=== PATIENT | female | born 1935 | race Caucasian/White ===

== ENCOUNTER 2023-09-18 17:37 | Inpatient (IN) | payer MEDICARE, OTHER ==
--- NOTE | 2023-09-18 18:19 | ED ---
Recheck HPI - General Chief Complaint: Recheck/Abnormal Lab/Rx Stated Complaint: blood transfusion Time Seen by Provider: 09/18/23 18:15 Source: patient, family, RN notes reviewed, old records reviewed Mode of arrival: ambulatory Limitations: no limitations - History of Present Illness Initial Comments: 88-year-old female presented to the ER with a chief complaint of low hemoglobin. Patient had preop labs drawn by Dr. Paniagua earlier today as she is scheduled for a TAVR procedure next week. She is a history significant of aortic stenosis. She reports she got a phone call later in the day and was told to come to ER as her hemoglobin was 5.9. Patient admits to weakness and fatigue for the past 2 to 3 weeks. She states her family would have to tell her to "hurry up". She also reports recent shortness of breath especially with exertion. Denies any orthopnea or home O2 use. She states when she goes to bed she feels asleep right away as she is so tired. Family report she appears pale. Denies any blood thinner use. She does report her stools have been a dark brown with streaking of bright red blood. Patient denies any history of GI b stone, gastric ulcers, blood transfusions. She has had colonoscopies and EGDs in the past which were normal per patient. Patient denies any current cough, congestion, fevers, chest pain, abdominal pain, urinary complaints or peripheral edema. - Related Data Home Medications Medication Instructions Recorded Confirmed Cyanocobalamin [Vitamin B-12 1,000 mcg SQ QMONTHLY 09/18/23 09/18/23 Injection] Levothyroxine Sodium [Synthroid] 112 mcg PO DAILY 09/18/23 09/18/23 Meclizine [Antivert] 25 mg PO TID 09/18/23 09/18/23 Sertraline [Zoloft] 25 mg PO DAILY 09/18/23 09/18/23 Simvastatin [Zocor] 5 mg PO DAILY 09/18/23 09/18/23 amLODIPine [Norvasc] 5 mg PO DAILY 09/18/23 09/18/23 Allergies Allergy/AdvReac Type Severity Reaction Status Date / Time No Known Allergies Allergy Verified 09/18/23 19:28 Review of Systems ROS Statement: Those systems with pertinent positive or pertinent negative responses have been documented in the HPI. ROS Other: All systems not noted in ROS Statement are negative. Past Medical History Past Medical History: Hyperlipidemia, Thyroid Disorder Additional Past Medical History / Comment(s): aneurysm History of Any Multi-Drug Resistant Organisms: None Reported Additional Past Surgical History / Comment(s): partial thyroidectomy Past Psychological History: No Psychological Hx Reported Smoking Status: Former smoker Past Alcohol Use History: None Reported Past Drug Use History: None Reported General Exam Limitations: no limitations General appearance: alert, in no apparent distress Head exam: Present: atraumatic, normocephalic, normal inspection Eye exam: Present: normal appearance, PERRL, EOMI. Absent: scleral icterus, conjunctival injection, periorbital swelling ENT exam: Present: normal exam, mucous membranes moist Neck exam: Present: normal inspection. Absent: tenderness, meningismus, lymphadenopathy Respiratory exam: Present: normal lung sounds bilaterally. Absent: respiratory distress, wheezes, rales, rhonchi, stridor Cardiovascular Exam: Present: regular rate, normal rhythm, systolic murmur (Aortic ) GI/Abdominal exam: Present: soft, normal bowel sounds. Absent: distended, tenderness, guarding, rebound, rigid Extremities exam: Present: normal inspection, full ROM, normal capillary refill. Absent: tenderness, pedal edema, joint swelling, calf tenderness Neurological exam: Present: alert, oriented X3, CN II-XII intact Psychiatric exam: Present: normal affect, normal mood Skin exam: Present: warm, dry, pallor Course Vital Signs 09/18/23 09/18/23 17:43 21:19 Temperature 97.8 F Pulse Rate 83 74 Respiratory 18 18 Rate Blood Pressure 108/58 125/89 O2 Sat by Pulse 95 94 L Oximetry - Reevaluation(s) Reevaluation #1: 09/18/23 20:[address] Solorio who accepts medical admission. He would like Dr. Ramirez on consult for colonoscopy. Reevaluation #2: 09/18/23 20:[address] Ramirez who accepts medical consult. Medical Decision Making - Medical Decision Making Was pt. sent in by a medical professional or institution (, PA, SHEET IRONWORKER, urgent care, hospital, or long term...) When possible be specific @ -Sent by Dr. Paniagua for hemoglobin of 5.9 on preop labs. Did you speak to anyone other than the patient for history (EMS, parent, family, police, friend...)? What history was obtained from this source @ -Daughter, at bedside, aiding HPI. Did you review nursing and triage notes (agree or disagree)? Why? @ -I reviewed and agree with nursing and triage notes Were old charts reviewed (outside hosp., previous admission, EMS record, old EKG, old radiological studies, urgent care reports/EKG's, long term records)? Report findings @ -I reviewed lab work from 09-18-2023 where patient had outpatient preoperative labs obtained. Hemoglobin 5.9. Differential Diagnosis (chest pain, altered mental status, abdominal pain women, abdominal pain men, vaginal bleeding, weakness, fever, dyspnea, syncope, hea dache, dizziness, GI bleed, back pain, seizure, CVA, palpatations, mental health, musculoskeletal)? @ -Differential Dyspnea:Coronary syndrome, arrhythmia, tamponade, asthma, COPD, pulmonary embolism, pneumonia, pneumothorax, pulmonary effusion, anaphylaxis, diabetic ketoacidosis, flailed chest, pulmonary contusion, diaphragmatic rupture, anemia, neuromuscular, this is not meant to be an all-inclusive list. EKG interpreted by me (3pts min.). @ -As above X-rays interpreted by me (1pt min.). @ -Chest x-ray interpreted by me negative for acute cardiopulmonary process. CT interpreted by me (1pt min.). @ -None done U/S interpreted by me (1pt. min.). @ -None done What testing was considered but not performed or refused? (CT, X-rays, U/S, labs)? Why? @ -None What meds were considered but not given or refused? Why? @ -None Did you discuss the management of the patient with other professionals (professionals i.e. DrRahul, PA, SHEET IRONWORKER, lab, RT, psych nurse, social work instructor, founder president and ceo, teacher, neighborhood conservation officer, block and case maker)? Give summary @ -Yes, case discussed with Dr. Solorio who accepts medical admission. I also spoke with Dr. Ramirez who accepts medical consult. Was smoking cessation discussed for >3mins.? @ -No Was critical care preformed (if so, how long)? @ -No Were there social determinants of health that impacted care today? How? (Homelessness, low income, unemployed, alcoholism, drug addiction, transportation, low edu. Level, literacy, decrease access to med. care, retirement, rehab)? @ -No Was there de-escalation of care discussed even if they declined (Discuss DNR or withdrawal of care, Hospice)? DNR status @ -No What co-morbidities impacted this encounter? (DM, HTN, Smoking, COPD, CAD, Cancer, CVA, ARF, Chemo, Hep., AIDS, mental health diagnosis, sleep apnea, morbid obesity)? @ -Aortic stenosis/advanced age Was patient admitted / discharged? Hospital course, mention meds given and route, prescriptions, significant lab abnormalities, going to OR and other pertinent info. @ - Admitted. 88-year-old female presenting to the ER with chief complaint of low hemoglobin. Patient sent by Dr. Paniagua. History and physical exam completed. Vitals stable. Blood pressure 108/58 and heart rate 83 bpm. Patient in no signs of acute distress and pale appearing on exam. Labs obtained remarkable for a normocytic hypochromic anemia hemoglobin 6.1, and calcium 7.2. Stool occult positive. Urinalysis pending. Chest x-ray interpreted by me negative for acute cardiopulmonary process. EKG showing sinus rhythm with no acute ST segment or T wave abnormalities. Admission considered due to anemia and need of blood transfusion. Case discussed with Dr. Solorio who accepts medical admission. Dr. Ramirez agreed to be on medical consult. 1 unit of PRBCs started. Patient started on IV Protonix. Results discussed with patient, all questions answered. Patient and family, at bedside, agreeable for admission. Patient admitted for further treatment. Case discussed with ED attending, Dr. Villegas. Undiagnosed new problem with uncertain prognosis? @ -No Drug Therapy requiring intensive monitoring for toxicity (Heparin, Nitro, Insulin, Cardizem)? @ -No Were any procedures done? @ -No Diagnosis/symptom? @ -Microcytic hypochromic anemia/stool occult positive Acute, or Chronic, or Acute on Chronic? @ -Acute Uncomplicated (without systemic symptoms) or Complicated (systemic symptoms)? @ -Complicated Side effects of treatment? @ -No Exacerbation, Progression, or Severe Exacerbation? @ -No Poses a threat to life or bodily function? How? (Chest pain, USA, SC, pneumonia, PE, COPD, DKA, ARF, appy, cholecystitis, CVA, Diverticulitis, Homicidal, Muse icidal, threat to staff... and all critical care pts) @ -Possibly low hgb can lead to hypoxia which is life threatening. - Lab Data Result diagrams: 09/18/23 18:51 09/18/23 18:51 Lab Results 09/18/23 09/18/23 09/18/23 Range/Units 18:49 18:51 18:51 WBC 5.2 (3.8-10.6) k/uL RBC 2.52 L (3.80-5.40) m/uL Hgb 6.1 L* (11.4-16.0) gm/dL Hct 19.9 L* (34.0-46.0) % MCV 78.9 L (80.0-100.0) fL MCH 24.2 L (25.0-35.0) pg MCHC 30.6 L (31.0-37.0) g/dL RDW 16.2 H (11.5-15.5) % Plt Count 255 (150-450) k/uL MPV 7.1 Neutrophils % 65 % Lymphocytes % 25 % Monocytes % 5 % Eosinophils % 2 % Basophils % 0 % Neutrophils # 3.4 (1.3-7.7) k/uL Lymphocytes # 1.3 (1.0-4.8) k/uL Monocytes # 0.3 (0-1.0) k/uL Eosinophils # 0.1 (0-0.7) k/uL Basophils # 0.0 (0-0.2) k/uL Hypochromasia Marked Anisocytosis Slight Microcytosis Slight PT 10.2 (10.0-12.5) sec INR 0.9 (<1.2) APTT 25.0 (22.0-30.0) sec Sodium (137-145) mmol/L Potassium (3.5-5.1) mmol/L Chloride (98-107) mmol/L Carbon Dioxide (22-30) mmol/L Anion Gap mmol/L BUN (7-17) mg/dL Creatinine (0.52-1.04) mg/dL Est GFR (CKD-EPI)AfAm (>60 ml/min/1.73 sqM) Est GFR (CKD-EPI)NonAf (>60 ml/min/1.73 sqM) Glucose (74-99) mg/dL Plasma Lactic Acid Lamont (0.7-2.0) mmol/L Calcium (8.4-10.2) mg/dL Magnesium (1.6-2.3) mg/dL Total Bilirubin (0.2-1.3) mg/dL AST (14-36) U/L ALT (4-34) U/L Alkaline Phosphatase (38-126) U/L Total Protein (6.3-8.2) g/dL Albumin (3.5-5.0) g/dL Stool Occult Blood Positive H (Negative) 09/18/23 09/18/23 Range/Units 18:51 18:51 WBC (3.8-10.6) k/uL RBC (3.80-5.40) m/uL Hgb (11.4-16.0) gm/dL Hct (34.0-46.0) % MCV (80.0-100.0) fL MCH (25.0-35.0) pg MCHC (31.0-37.0) g/dL RDW (11.5-15.5) % Plt Count (150-450) k/uL MPV Neutrophils % % Lymphocytes % % Monocytes % % Eosinophils % % Basophils % % Neutrophils # (1.3-7.7) k/uL Lymphocytes # (1.0-4.8) k/uL Monocytes # (0-1.0) k/uL Eosinophils # (0-0.7) k/uL Basophils # (0-0.2) k/uL Hypochromasia Anisocytosis Microcytosis PT (10.0-12.5) sec INR (<1.2) APTT (22.0-30.0) sec Sodium 143 (137-145) mmol/L Potassium 3.7 (3.5-5.1) mmol/L Chloride 109 H (98-107) mmol/L Carbon Dioxide 27 (22-30) mmol/L Anion Gap 7 mmol/L BUN 28 H (7-17) mg/dL Creatinine 0.99 (0.52-1.04) mg/dL Est GFR (CKD-EPI)AfAm 59 (>60 ml/min/1.73 sqM) Est GFR (CKD-EPI)NonAf 51 (>60 ml/min/1.73 sqM) Glucose 96 (74-99) mg/dL Plasma Lactic Acid Lamont 0.8 (0.7-2.0) mmol/L Calcium 7.2 L (8.4-10.2) mg/dL Magnesium 2.2 (1.6-2.3) mg/dL Total Bilirubin 0.3 (0.2-1.3) mg/dL AST 19 (14-36) U/L ALT 9 (4-34) U/L Alkaline Phosphatase 55 (38-126) U/L Total Protein 6.6 (6.3-8.2) g/dL Albumin 3.7 (3.5-5.0) g/dL Stool Occult Blood (Negative) - EKG Data -: EKG Interpreted by Me EKG Comments: EKG taken at 18: 00 showing a sinus rhythm with no acute ST segment or T wave abnormalities. Ventricular rate 79, WI interval 173, QRS duration 81, QT/QTc 396/430. - Radiology Data Radiology results: report reviewed, image reviewed Disposition Clinical Impression: Anemia, Positive occult stool blood test Disposition: ADMITTED IP TO THIS [facility] Condition: Fair Time of Disposition: 20:38
[2023-09-18 19:56] LABS: Anisocytosis Slight; Basophils % (A) 0 %; Eosinophils # (A) 0.1 k/uL (0-0.7); Eosinophils % (A) 2 %; Hypochromasia Marked; Lymphocytes # (A) 1.3 k/uL (1.0-4.8); Lymphocytes % (A) 25 %; MCH 24.2 pg (25.0-35.0); MCHC 30.6 g/dL (31.0-37.0); MCV 78.9 fL (80.0-100.0); Mean Platelet Volume 7.1; Microcytosis Slight; Monocytes # (A) 0.3 k/uL (0-1.0); Monocytes % (A) 5 %; Neutrophils # (A) 3.4 k/uL (1.3-7.7); Neutrophils % (A) 65 %; Platelet Count 255 k/uL (150-450); RBC 2.52 m/uL (3.80-5.40); RDW 16.2 % (11.5-15.5); WBC 5.2 k/uL (3.8-10.6)
[2023-09-18 20:10] LABS: INR 0.9 (<1.2); Prothrombin Time 10.2 sec (10.0-12.5)
[2023-09-18 20:12] LABS: HGB 6.1 gm/dL (11.4-16.0)
[2023-09-18 20:13] LABS: HCT 19.9 % (34.0-46.0)
[2023-09-18 20:36] LABS: ALT 9 U/L (4-34); AST 19 U/L (14-36); African American GFR (CKD) 59 (>60 ml/min/1.73 sqM); Albumin 3.7 g/dL (3.5-5.0); Alkaline Phosphatase 55 U/L (38-126); Anion Gap 7 mmol/L; Blood Urea Nitrogen 28 mg/dL (7-17); Calcium 7.2 mg/dL (8.4-10.2); Carbon Dioxide 27 mmol/L (22-30); Chloride 109 mmol/L (98-107); Glucose 96 mg/dL (74-99); Magnesium 2.2 mg/dL (1.6-2.3); Non-African American GFR(CKD) 51 (>60 ml/min/1.73 sqM); Potassium 3.7 mmol/L (3.5-5.1); Sodium 143 mmol/L (137-145); Total Bilirubin 0.3 mg/dL (0.2-1.3); Total Protein 6.6 g/dL (6.3-8.2)
[2023-09-18] MEDS ORDERED: NALOXONE 0.4 MG/ML 1 ML VIAL IV PRN (20:36)
[2023-09-18] MEDS ORDERED: ONDANSETRON 4 MG/2 ML VIAL IVP PRN (20:36)
--- NOTE | 2023-09-18 20:47 | XR ---
EXAMINATION TYPE: XR chest 2V DATE OF EXAM: 09/18/2023 6:33 PM CLINICAL INDICATION:Female, 88 years old with history of difficulty breathing; [facility] COMPARISON: 11/15/2021 TECHNIQUE: XR chest 2V. Frontal and lateral views of the chest.. FINDINGS: Lines/Tubes/Devices: EKG leads overlie the chest. No indwelling lines are seen. Heart/mediastinum: Heart size upper normal. Mediastinum appears normal. Pulmonary vascularity: Not increased, Lungs/Pleura: Stable mildly prominent interstitial lung markings, likely chronic changes. There is no evidence of pleural effusion, focal consolidation, or pneumothorax. Musculoskeletal: No acute osseous abnormality demonstrated in the limits of the exam. Mild/moderate degenerative change of the spine and shoulders. Other findings: None. IMPRESSION: No acute cardiopulmonary abnormality.
[2023-09-18] MEDS: SODIUM CHLORIDE 0.9% 1,000 ML IV STA (21:18)
[2023-09-18] MEDS: PANTOPRAZOLE 40 MG/10 ML VIAL IVP STA (21:18)
[2023-09-19 06:38] LABS: Appearance,Urine Clear (Clear); Bacteria,Urine Rare /hpf; Bilirubin,Urine Negative (Negative); Blood,Urine Negative (Negative); Color,Urine Colorless; Glucose,Urine (UA) Negative (Negative); Hyaline Casts,Urine 1 /lpf (0-2); Ketones,Urine Negative (Negative); Leukocyte Esterase,Urine Small (Negative); Mucus,Urine Rare /hpf; Nitrite,Urine Positive (Negative); PH, Urine 5.5 (5.0-8.0); Protein,Urine Negative (Negative); RBC,Urine <1 /hpf (0-5); Specific Gravity,Urine 1.014 (1.001-1.035); Urobilinogen,Urine <2.0 mg/dL (<2.0); WBC,Urine 13 /hpf (0-5)
[2023-09-19] MEDS: PANTOPRAZOLE 40 MG/10 ML VIAL IVP SCH (08:32)
[2023-09-19 08:42] LABS: HCT 23.6 % (34.0-46.0); HGB 7.2 gm/dL (11.4-16.0); Hypochromasia Marked; MCH 24.8 pg (25.0-35.0); MCHC 30.5 g/dL (31.0-37.0); MCV 81.5 fL (80.0-100.0); Mean Platelet Volume 7.4; Platelet Count 226 k/uL (150-450); Poikilocytosis Slight; RDW 15.8 % (11.5-15.5); WBC 5.4 k/uL (3.8-10.6)
--- NOTE | 2023-09-19 11:23 | P.GSCN ---
History of Present Illness Consult date: 09/19/23 History of present illness: CHIEF COMPLAINT: Anemia HISTORY OF PRESENT ILLNESS: This is a 88-year-old female who presented to the hospital due to outpatient labs of a hemoglobin of 5.9. She was getting routine blood work for her heart cath and ART for next week. She is being evaluated for a possible TAVR procedure for her aortic stenosis. Patient does report having a dark brown stool with red spots noted on the stool x 3 episodes that started on Friday. Patient reports she has had similar episodes in the past and contributed to bleeding from a rectal fissure which she has had since her pregnancies many years ago. Patient has been short of breath, fatigued and dizzy. Patient did receive 1 unit of blood and repeat hemoglobin is 7.2. Patient reports her last EGD and colonoscopy was probably over 10 years ago and reports it as normal findings. She denies being on any blood thinners. Patient denies any abdominal pain. PAST MEDICAL HISTORY: Aortic stenosis, hyperlipidemia, hypothyroidism PAST SURGICAL HISTORY: See below MEDICATIONS: See below ALLERGIES: See below SOCIAL HISTORY: No illicit drug use. REVIEW OF SYSTEMS: CONSTITUTIONAL: Denies fever or chills. HEENT: Denies blurred vision, vision changes, or eye pain. Denies hemoptysis CARDIOVASCULAR: Denies chest pain or pressure. RESPIRATORY: No shortness of breath. GASTROINTESTINAL: See HPI for pertinent findings HEMATOLOGIC: Denies bleeding disorders. GENITOURINARY: Denies any blood in urine or increased urinary frequency. SKIN: Denies pruitis. Denies rash. PHYSICAL EXAM: VITAL SIGNS: Reviewed GENERAL: Well-developed in no acute distress. HEENT: No sclera icterus. Extraocular movements grossly intact. Moist buccal mucosa. Head is atraumatic, normocephalic. No nasal drainage. ABDOMEN: Soft. Nondistended. Nontender. no fissure or skin tear noted on skin around the anus NEUROLOGIC: Alert and oriented. Cranial nerves II through XII grossly intact. LABORATORY DATA: WBC 5.4 Hgb 6.1-7.2 platelets 226 Sodium is 143 potassium 3.7 creatinine 0.99 Lactic acid 0.8 LFTs normal Stool for occult blood positive IMAGING: Chest x-ray no acute cardiopulmonary abnormality ASSESSMENT: 1. Anemia with acute GI bleed status post 1 unit of blood 2. History of aortic stenosis PLAN: -Plan for EGD and colonoscopy on 09/22/[address] Ramirez -Continue to monitor for any signs or symptoms of bleeding -Continue to monitor hemoglobin -Continue PPI -Continue clear liquids Thank you for this consultation Physician Meter/Relay Technician note has been reviewed by physician. Signing provider agrees with the documented findings, assessment, and plan of care. Past Medical History Past Medical History: Hyperlipidemia, Thyroid Disorder Additional Past Medical History / Comment(s): aneurysm History of Any Multi-Drug Resistant Organisms: None Reported Additional Past Surgical History / Comment(s): partial thyroidectomy Past Psychological History: No Psychological Hx Reported Smoking Status: Former smoker Past Alcohol Use History: None Reported Past Drug Use History: None Reported Medications and Allergies Home Medications Medication Instructions Recorded Confirmed Type Cyanocobalamin [Vitamin B-12 1,000 mcg SQ QMONTHLY 09/18/23 09/18/23 History Injection] Levothyroxine Sodium [Synthroid] 112 mcg PO DAILY 09/18/23 09/18/23 History Meclizine [Antivert] 25 mg PO TID 09/18/23 09/18/23 History Sertraline [Zoloft] 25 mg PO DAILY 09/18/23 09/18/23 History Simvastatin [Zocor] 5 mg PO DAILY 09/18/23 09/18/23 History amLODIPine [Norvasc] 5 mg PO DAILY 09/18/23 09/18/23 History Allergies Allergy/AdvReac Type Severity Reaction Status Date / Time No Known Allergies Allergy Verified 09/18/23 19:28 Surgical - Exam Vital Signs Temp Pulse Resp BP Pulse Ox 97.8 F 83 18 108/58 95 09/18/23 17:43 09/18/23 17:43 09/18/23 17:43 09/18/23 17:43 09/18/23 17:43 Results - Labs 09/19/23 08:23 09/18/23 18:51 Abnormal Lab Results - Last 24 Hours (Table) 09/18/23 09/18/23 09/18/23 Range/Units 18:49 18:51 18:51 RBC 2.52 L (3.80-5.40) m/uL Hgb 6.1 L* (11.4-16.0) gm/dL Hct 19.9 L* (34.0-46.0) % MCV 78.9 L (80.0-100.0) fL MCH 24.2 L (25.0-35.0) pg MCHC 30.6 L (31.0-37.0) g/dL RDW 16.2 H (11.5-15.5) % Chloride 109 H (98-107) mmol/L BUN 28 H (7-17) mg/dL Calcium 7.2 L (8.4-10.2) mg/dL Urine Nitrite (Negative) Ur Leukocyte Esterase (Negative) Urine WBC (0-5) /hpf Urine WBC Clumps (None) /hpf Urine Bacteria (None) /hpf Urine Mucus (None) /hpf Stool Occult Blood Positive H (Negative) Crossmatch 09/18/23 09/19/23 09/19/23 Range/Units 21:08 06:07 08:23 RBC 2.90 L (3.80-5.40) m/uL Hgb 7.2 L (11.4-16.0) gm/dL Hct 23.6 L (34.0-46.0) % MCV (80.0-100.0) fL MCH 24.8 L (25.0-35.0) pg MCHC 30.5 L (31.0-37.0) g/dL RDW 15.8 H (11.5-15.5) % Chloride (98-107) mmol/L BUN (7-17) mg/dL Calcium (8.4-10.2) mg/dL Urine Nitrite Positive H (Negative) Ur Leukocyte Esterase Small H (Negative) Urine WBC 13 H (0-5) /hpf Urine WBC Clumps Rare H (None) /hpf Urine Bacteria Rare H (None) /hpf Urine Mucus Rare H (None) /hpf Stool Occult Blood (Negative) Crossmatch See Detail Diabetes panel 09/18/23 Range/Units 18:51 Sodium 143 (137-145) mmol/L Potassium 3.7 (3.5-5.1) mmol/L Chloride 109 H (98-107) mmol/L Carbon Dioxide 27 (22-30) mmol/L BUN 28 H (7-17) mg/dL Creatinine 0.99 (0.52-1.04) mg/dL Glucose 96 (74-99) mg/dL Calcium 7.2 L (8.4-10.2) mg/dL AST 19 (14-36) U/L ALT 9 (4-34) U/L Alkaline Phosphatase 55 (38-126) U/L Total Protein 6.6 (6.3-8.2) g/dL Albumin 3.7 (3.5-5.0) g/dL Calcium panel 09/18/23 Range/Units 18:51 Calcium 7.2 L (8.4-10.2) mg/dL Albumin 3.7 (3.5-5.0) g/dL Pituitary panel 09/18/23 Range/Units 18:51 Sodium 143 (137-145) mmol/L Potassium 3.7 (3.5-5.1) mmol/L Chloride 109 H (98-107) mmol/L Carbon Dioxide 27 (22-30) mmol/L BUN 28 H (7-17) mg/dL Creatinine 0.99 (0.52-1.04) mg/dL Glucose 96 (74-99) mg/dL Calcium 7.2 L (8.4-10.2) mg/dL Adrenal panel 09/18/23 Range/Units 18:51 Sodium 143 (137-145) mmol/L Potassium 3.7 (3.5-5.1) mmol/L Chloride 109 H (98-107) mmol/L Carbon Dioxide 27 (22-30) mmol/L BUN 28 H (7-17) mg/dL Creatinine 0.99 (0.52-1.04) mg/dL Glucose 96 (74-99) mg/dL Calcium 7.2 L (8.4-10.2) mg/dL Total Bilirubin 0.3 (0.2-1.3) mg/dL AST 19 (14-36) U/L ALT 9 (4-34) U/L Alkaline Phosphatase 55 (38-126) U/L Total Protein 6.6 (6.3-8.2) g/dL Albumin 3.7 (3.5-5.0) g/dL
[2023-09-19] MEDS: SERTRALINE 25 MG TAB PO SCH (12:10)
[2023-09-19] MEDS: ATORVASTATIN 10 MG TAB PO SCH (12:10)
[2023-09-19] MEDS: amLODIPine 5 MG TAB PO SCH (12:10)
[2023-09-19] MEDS: LEVOTHYROXINE 112 MCG TAB PO SCH (12:11)
--- NOTE | 2023-09-19 12:50 | P.HPIM ---
History of Present Illness H&P Date: 09/19/23 Chief Complaint: No hemoglobin This is a pleasant 88-year-old patient who follows with . Accompanied by her daughter who supplements the history. Chronic stable medical conditions include hyperlipidemia, essential hypertension, depression, hypothyroid. Patient does live alone. Yesterday morning patient does have a blood draw and found to have a hemoglobin of 6.1. Patient been having dark stool with some blood in there. Denies any change of appetite or weight loss. Denies taking any NSAIDs. Patient was given 1 unit of blood in the ER. Does feel tired lightheaded. Patient in the remote past has had an endoscopy. Does not remember the details. Review of systems: GEN.: Tired dizzy EYES: None HEENT: None NECK: None RESPIRATORY: None CARDIOVASCULAR: None GASTROINTESTINAL: None GENITOURINARY: None MUSCULOSKELETAL: Joint pains] LYMPHATICS: None HEMATOLOGICAL: None PSYCHIATRY: A bit forgetful e NEUROLOGICAL: None Social history: Lives alone. Former smoker. No alcohol. Physical examination: VITAL SIGNS: 98, 78, 16, 138 x 66, 98% room air GENERAL: BMI 23, reclining bed awake tired. EYES: Pupils equal. Conjunctiva pale l. HEENT: External appearance of nose and ears normal, oral cavity grossly normal. NECK: JVD not raised; masses not palpable. HEART: First and second heart sounds are normal; no edema. LUNGS: Respiratory rate normal; clear to auscultation. ABDOMEN: Soft, nontender, liver spleen not palpable, no masses palpable. PSYCH: Answering simple questions a bit forgetful l. MUSCULOSKELETAL:No Clubbing/cyanosis;muscles-grossly intact. OA NEUROLOGICAL: Cranial nerves grossly intact; no facial asymmetry, power and sensation grossly intact. LYMPHATICS: No lymph nodes palpable in the axilla and neck INVESTIGATIONS, reviewed in the clinical context: September 18: White count 5.4 hemoglobin 7.2 platelets 226 September 17: White count 5.2 hemoglobin 6.1 platelets 255 potassium 3.7 BUN 28 creatinine 0.99 Stool occult blood positive EKG tracing personally reviewed by me-normal sinus rhythm's. Chest x-ray film personally reviewed by me-possible chronic changes in the bases -Assessment and plan: -Severe symptomatic anemia the patient is been having dark stools for few days. Also noticed some blood. Denies any abdominal pain. Denies any take intake of NSAIDs. General surgery consulted. [GI services not available in the hospital]. Patient need both upper and lower endoscopy. Patient did receive 1 unit of blood -Hyperlipidemia Zocor 5 mg a day -Essential hypertension Amlodipine 5 mg a day -Depression Zoloft 25 mg a day -Hypothyroid Synthroid 112 mcg a day -Full code Care was discussed with the patient daughter at the bedside. Dr. Ramirez from general surgery was consulted. Plan for EGD colonoscopy by him. Past Medical History Past Medical History: Hyperlipidemia, Thyroid Disorder Additional Past Medical History / Comment(s): aneurysm History of Any Multi-Drug Resistant Organisms: None Reported Additional Past Surgical History / Comment(s): partial thyroidectomy Past Psychological History: No Psychological Hx Reported Smoking Status: Former smoker Past Alcohol Use History: None Reported Past Drug Use History: None Reported Medications and Allergies Home Medications Medication Instructions Recorded Confirmed Type Cyanocobalamin [Vitamin B-12 1,000 mcg SQ QMONTHLY 09/18/23 09/18/23 History Injection] Levothyroxine Sodium [Synthroid] 112 mcg PO DAILY 09/18/23 09/18/23 History Meclizine [Antivert] 25 mg PO TID 09/18/23 09/18/23 History Sertraline [Zoloft] 25 mg PO DAILY 09/18/23 09/18/23 History Simvastatin [Zocor] 5 mg PO DAILY 09/18/23 09/18/23 History amLODIPine [Norvasc] 5 mg PO DAILY 09/18/23 09/18/23 History Allergies Allergy/AdvReac Type Severity Reaction Status Date / Time No Known Allergies Allergy Verified 09/18/23 19:28 Physical Exam Vitals: Vital Signs Temp Pulse Resp BP Pulse Ox 09/19/23 09:40 78 16 151/78 95 09/19/23 08:35 60 16 138/66 98 09/19/23 06:46 60 18 113/53 94 L 09/19/23 04:37 64 18 122/84 93 L 09/19/23 03:00 98 F 63 18 135/66 96 09/19/23 02:52 98 F 66 18 120/67 98 09/19/23 02:04 97.9 F 63 18 126/62 99 09/19/23 01:44 98 F 65 18 127/55 96 09/19/23 01:35 98.4 F 70 18 121/58 94 L 09/19/23 01:22 98.4 F 67 18 104/60 92 L 09/18/23 23:29 74 18 103/54 94 L 09/18/23 21:19 74 18 125/89 94 L 09/18/23 17:43 97.8 F 83 18 108/58 95 Intake and Output 09/18/23 09/19/23 09/19/23 22:59 06:59 14:59 Intake Total 310 Balance 310 Intake: Blood Product 310 Rc As-1 Unit 310 [id number] Other: Weight 60.781 kg Results CBC & Chem 7: 09/19/23 08:23 09/18/23 18:51 Labs: Abnormal Lab Results - Last 24 Hours (Table) 09/18/23 09/18/23 09/18/23 Range/Units 18:49 18:51 18:51 RBC 2.52 L (3.80-5.40) m/uL Hgb 6.1 L* (11.4-16.0) gm/dL Hct 19.9 L* (34.0-46.0) % MCV 78.9 L (80.0-100.0) fL MCH 24.2 L (25.0-35.0) pg MCHC 30.6 L (31.0-37.0) g/dL RDW 16.2 H (11.5-15.5) % Chloride 109 H (98-107) mmol/L BUN 28 H (7-17) mg/dL Calcium 7.2 L (8.4-10.2) mg/dL Urine Nitrite (Negative) Ur Leukocyte Esterase (Negative) Urine WBC (0-5) /hpf Urine WBC Clumps (None) /hpf Urine Bacteria (None) /hpf Urine Mucus (None) /hpf Stool Occult Blood Positive H (Negative) Crossmatch 09/18/23 09/19/23 09/19/23 Range/Units 21:08 06:07 08:23 RBC 2.90 L (3.80-5.40) m/uL Hgb 7.2 L (11.4-16.0) gm/dL Hct 23.6 L (34.0-46.0) % MCV (80.0-100.0) fL MCH 24.8 L (25.0-35.0) pg MCHC 30.5 L (31.0-37.0) g/dL RDW 15.8 H (11.5-15.5) % Chloride (98-107) mmol/L BUN (7-17) mg/dL Calcium (8.4-10.2) mg/dL Urine Nitrite Positive H (Negative) Ur Leukocyte Esterase Small H (Negative) Urine WBC 13 H (0-5) /hpf Urine WBC Clumps Rare H (None) /hpf Urine Bacteria Rare H (None) /hpf Urine Mucus Rare H (None) /hpf Stool Occult Blood (Negative) Crossmatch See Detail
[2023-09-20 06:27] LABS: Anisocytosis Slight; HCT 24.8 % (34.0-46.0); HGB 7.7 gm/dL (11.4-16.0); Hypochromasia Marked; MCH 24.9 pg (25.0-35.0); MCHC 30.9 g/dL (31.0-37.0); MCV 80.6 fL (80.0-100.0); Mean Platelet Volume 7.3; Platelet Count 252 k/uL (150-450); Poikilocytosis Slight; RBC 3.08 m/uL (3.80-5.40); RDW 16.1 % (11.5-15.5); WBC 5.9 k/uL (3.8-10.6)
[2023-09-20] MEDS ORDERED: LEVOTHYROXINE 112 MCG TAB PO SCH (06:30)
[2023-09-20] MEDS ORDERED: amLODIPine 5 MG TAB PO SCH (09:00)
[2023-09-20] MEDS ORDERED: ATORVASTATIN 10 MG TAB PO SCH (09:00)
--- NOTE | 2023-09-20 11:58 | P.CRDCN ---
History of Present Illness History of present illness: This is Dr. Kee dictating a consult on this patient The patient was interviewed and examined IMPRESSION / ASSESSMENT: Severe anemia, symptomatic Severe aortic stenosis awaiting evaluation for TAVR Hypertension Dyslipidemia Hypothyroidism PLAN: Proceed with endoscopy Management of severe anemia per internal medicine Will hold off on any TAVR evaluation at this time, hold off on ART Obtain Dr. Paniagua's note on Friday Evaluation and management of severe anemia prior to any evaluation or treatment of aortic stenosis Continue antihypertensive therapy and statins HPI Patient presented with low hemoglobin, weakness shortness of breath on exertion and fatigue Labs are drawn by Dr. Paniagua and she has been scheduled for an evaluation for TAVR At this time of my evaluation she is resting comfortably in bed no chest discomfort ROS: No fever chills or rigors, no cough, phlegm or expectoration, no nausea, vomiting or diarrhea, positive dark stools no hematuria, dysuria, no musculoskeletal complaints, no strokes or seizures, no skin lesions. EXAMINATION: On cardiac examination murmur of aortic stenosis Blood pressure 130/69 mmHg, pulse rate in the 60s afebrile Lungs are clear REVIEW OF LABS, ECG & MEDICAL DATA Twelve-lead EKG shows sinus rhythm Q waves in V1 and V2 biphasic ST segments inferior laterally Past Medical History Past Medical History: Hyperlipidemia, Thyroid Disorder Additional Past Medical History / Comment(s): aneurysm History of Any Multi-Drug Resistant Organisms: None Reported Additional Past Surgical History / Comment(s): partial thyroidectomy Past Psychological History: No Psychological Hx Reported Smoking Status: Former smoker Past Alcohol Use History: None Reported Past Drug Use History: None Reported Medications and Allergies Home Medications Medication Instructions Recorded Confirmed Type Cyanocobalamin [Vitamin B-12 1,000 mcg SQ QMONTHLY 09/18/23 09/18/23 History Injection] Levothyroxine Sodium [Synthroid] 112 mcg PO DAILY 09/18/23 09/18/23 History Meclizine [Antivert] 25 mg PO TID 09/18/23 09/18/23 History Sertraline [Zoloft] 25 mg PO DAILY 09/18/23 09/18/23 History Simvastatin [Zocor] 5 mg PO DAILY 09/18/23 09/18/23 History amLODIPine [Norvasc] 5 mg PO DAILY 09/18/23 09/18/23 History Allergies Allergy/AdvReac Type Severity Reaction Status Date / Time No Known Allergies Allergy Verified 09/18/23 19:28 Physical Exam Vitals: Vital Signs Temp Pulse Pulse Resp BP BP Pulse Ox 09/20/23 08:50 66 18 09/20/23 08:15 98.3 F 66 18 130/69 97 09/20/23 02:00 97.1 F L 76 18 113/51 97 09/19/23 19:54 97.5 F L 67 16 125/56 09/19/23 18:18 98.0 F 66 18 154/67 94 L 09/19/23 17:42 68 16 135/75 98 09/19/23 15:37 67 16 131/87 98 09/19/23 14:00 68 16 140/90 98 Intake and Output 09/19/23 09/20/23 09/20/23 22:59 06:59 14:59 Other: Voiding Method Toilet # Voids 1 1 Weight 60.781 kg 53 kg Results 09/20/23 06:00 09/18/23 18:51 CBC 09/20/23 Range/Units 06:00 WBC 5.9 (3.8-10.6) k/uL RBC 3.08 L (3.80-5.40) m/uL Hgb 7.7 L (11.4-16.0) gm/dL Hct 24.8 L (34.0-46.0) % Plt Count 252 (150-450) k/uL Current Medications Generic Name Dose Route Start Last Admin Trade Name Freq PRN Reason Stop Dose Admin Acetaminophen 650 mg 09/18/23 20:36 Acetaminophen Tab 325 Mg Tab PO Q6HR PRN Mild Pain or Fever > 100.5 Amlodipine Besylate 5 mg 09/19/23 12:00 09/20/23 09:03 Amlodipine 5 Mg Tab PO 5 mg DAILY PRAVEENA Administration Atorvastatin Calcium 10 mg 09/19/23 12:00 09/20/23 09:02 Atorvastatin 10 Mg Tab PO 10 mg DAILY PRAVEENA Administration Levothyroxine Sodium 112 mcg 09/19/23 12:00 09/20/23 06:19 Levothyroxine 112 Mcg Tab PO 112 mcg DAILY@0630 PRAVEENA Administration Meclizine HCl 25 mg 09/19/23 11:09 Meclizine 25 Mg Tab PO TID PRN Vertigo Naloxone HCl 0.2 mg 09/18/23 20:36 Naloxone 0.4 Mg/Ml 1 Ml Vial IV Q2M PRN Opioid Reversal Ondansetron HCl 4 mg 09/18/23 20:36 Ondansetron 4 Mg/2 Ml Vial IVP Q8HR PRN Nausea And Vomiting Pantoprazole Sodium 40 mg 09/19/23 09:00 09/20/23 09:02 Pantoprazole 40 Mg/10 Ml Vial IVP 40 mg BID PRAVEENA Administration Polyethylene Glycol/Electrolytes 4,000 ml 09/21/23 09:00 Peg 3350 (236 Gm/Btl) + Lytes 4,000 Ml Bottle PO 09/21/23 09:01 ONCE ONE Sertraline HCl 25 mg 09/19/23 11:15 09/20/23 09:02 Sertraline 25 Mg Tab PO 25 mg DAILY PRAVEENA Administration Intake and Output 09/19/23 09/20/23 09/20/23 22:59 06:59 14:59 Other: Voiding Method Toilet # Voids 1 1 Weight 60.781 kg 53 kg 09/20/23 06:00 09/18/23 18:51
--- NOTE | 2023-09-20 18:24 | P.PN ---
Subjective Patient seen and evaluated at bedside. Patient has no complaints. Objective - Vital Signs Vital signs: Vital Signs Temp 97.6 F 09/20/23 12:59 Pulse 67 09/20/23 14:25 Resp 18 09/20/23 14:25 BP 124/58 09/20/23 12:59 Pulse Ox 95 09/20/23 12:59 FiO2 Intake & Output 09/19/23 09/20/23 09/20/23 18:59 06:59 18:59 Intake Total 240 Balance 240 Weight 60.781 kg 53 kg Intake: Oral 240 Other: Voiding Method Toilet # Voids 1 3 - Exam Physical exam: HEENT: Normocephalic, sclerae nonicteric Chest: Clear to auscultation Heart: Regular rate and rhythm Abdomen: [Nontender, nondistended] Extremities: No edema Neuro: Alert and oriented - Labs CBC & Chem 7: 09/20/23 06:00 09/18/23 18:51 Labs: Abnormal Lab Results - Last 24 Hours (Table) 09/20/23 Range/Units 06:00 RBC 3.08 L (3.80-5.40) m/uL Hgb 7.7 L (11.4-16.0) gm/dL Hct 24.8 L (34.0-46.0) % MCH 24.9 L (25.0-35.0) pg MCHC 30.9 L (31.0-37.0) g/dL RDW 16.1 H (11.5-15.5) % Microbiology - Last 24 Hours (Table) 09/19/23 06:07 Urine Culture - Preliminary Urine,Voided Gram Neg Bacilli Assessment and Plan Assessment: 88 yo female w/ GI bleed PLAN: -Plan for EGD and colonoscopy on 09/22/[address] Ramirez -Continue to monitor for any signs or symptoms of bleeding -Continue to monitor hemoglobin -Continue PPI -Continue clear liquids
--- NOTE | 2023-09-20 18:39 | P.PN ---
Subjective Progress Note Date: 09/20/23 88-year-old female who presented to the hospital due to outpatient labs of a hemoglobin of 5.9. She was getting routine blood work for her heart cath and ART for next week. She is being evaluated for a possible TAVR procedure for her aortic stenosis. Patient does report having a dark brown stool with red spots noted on the stool x 3 episodes that started on Friday. Patient reports she has had similar episodes in the past and contributed to bleeding from a rectal fissure which she has had since her pregnancies many years ago. Patient has been short of breath, fatigued and dizzy. Patient did receive 1 unit of blood and repeat hemoglobin is 7.2. Patient reports her last EGD and colonoscopy was probably over 10 years ago and reports it as normal findings. She denies being on any blood thinners. Patient denies any abdominal pain. Objective - Vital Signs Vital signs: Vital Signs Temp 98.3 F 09/20/23 08:15 Pulse 66 09/20/23 08:50 Resp 18 09/20/23 08:50 BP 130/69 09/20/23 08:15 Pulse Ox 97 09/20/23 08:15 FiO2 Intake & Output 09/19/23 09/20/23 09/20/23 18:59 06:59 18:59 Weight 60.781 kg 53 kg Other: Voiding Method Toilet # Voids 1 - Exam GENERAL: BMI 23, reclining bed awake tired. EYES: Pupils equal. Conjunctiva pale l. HEENT: External appearance of nose and ears normal, oral cavity grossly normal. NECK: JVD not raised; masses not palpable. HEART: First and second heart sounds are normal; no edema. LUNGS: Respiratory rate normal; clear to auscultation. ABDOMEN: Soft, nontender, liver spleen not palpable, no masses palpable. PSYCH: Answering simple questions a bit forgetful l. MUSCULOSKELETAL:No Clubbing/cyanosis;muscles-grossly intact. OA NEUROLOGICAL: Cranial nerves grossly intact; no facial asymmetry, power and sensation grossly intact. LYMPHATICS: No lymph nodes palpable in the axilla and neck - Labs CBC & Chem 7: 09/20/23 06:00 09/18/23 18:51 Labs: Abnormal Lab Results - Last 24 Hours (Table) 09/20/23 Range/Units 06:00 RBC 3.08 L (3.80-5.40) m/uL Hgb 7.7 L (11.4-16.0) gm/dL Hct 24.8 L (34.0-46.0) % MCH 24.9 L (25.0-35.0) pg MCHC 30.9 L (31.0-37.0) g/dL RDW 16.1 H (11.5-15.5) % Assessment and Plan Assessment: 1. Severe symptomatic anemia the patient is been having dark stools for few days. Also noticed some blood. Denies any abdominal pain. Denies any take intake of NSAIDs. General surgery consulted. Recommendations noted and appreciated; patient is scheduled for EGD/colonoscopy on Friday Patient did receive 1 unit of blood 2. Hyperlipidemia Zocor 5 mg a day 3. Essential hypertension Amlodipine 5 mg a day 4. Depression Zoloft 25 mg a day 5 hypothyroid Synthroid 112 mcg a day DVT prophylaxis; SCDs only given profound anemia CODE STATUS full code
[2023-09-21 09:19] LABS: Basophils # (A) 0.04 X 10*3/uL (0.00-0.10); Basophils % (A) 0.7 %; Eosinophils # (A) 0.16 X 10*3/uL (0.04-0.35); Eosinophils % (A) 2.8 %; HCT 26.8 % (37.2-46.3); HGB 7.8 g/dL (12.0-15.0); Lymphocytes # (A) 1.32 X 10*3/uL (0.90-5.00); Lymphocytes % (A) 22.9 %; MCH 24.1 pg (27.0-32.0); MCHC 29.1 g/dL (32.0-37.0); MCV 82.7 FL (80.0-97.0); Mean Platelet Volume 10.4 FL (9.5-12.2); Monocytes # (A) 0.53 X 10*3/uL (0.20-1.00); Monocytes % (A) 9.2 %; NRBC Per 100 WBC 0 X 10*3/uL (0.00-0.01); Neutrophils % (A) 64.2 %; Platelet Count 277 X 10*3/uL (140-440); RBC 3.24 X 10*6/uL (4.10-5.20); RDW 15.8 % (11.5-14.5); WBC 5.76 X 10*3/uL (4.50-10.00)
[2023-09-21] MEDS: PEG 3350 (236 GM/BTL) + LYTES 4,000 ML BOTTLE PO ONE (09:30)
[2023-09-21 09:38] LABS: Calcium 7.6 mg/dL (8.7-10.3); Carbon Dioxide 24.5 mmol/L (21.6-31.8); Chloride 110 mmol/L (96-109); Glucose 106 mg/dL (70-110); Potassium 3.9 mmol/L (3.5-5.5); Sodium 147 mmol/L (135-145)
[2023-09-21] MEDS: MECLIZINE 25 MG TAB PO PRN (09:39)
--- NOTE | 2023-09-21 15:03 | P.PN ---
Subjective Progress Note Date: 09/21/23 Very pleasant. She is tolerating her bowel prep. No signs of bleeding. Hgb is stable at 7.7 with anemia ABDOMEN: No peritonitis. PLAN: 1. EGD and colonoscopy for tomorrow for anemia and GI bleed. Objective - Vital Signs Vital signs: Vital Signs Temp 97.8 F 09/21/23 14:04 Pulse 60 09/21/23 14:04 Resp 18 09/21/23 14:04 BP 116/54 09/21/23 14:04 Pulse Ox 96 09/21/23 14:04 FiO2 Intake & Output 09/20/23 09/21/23 09/21/23 18:59 06:59 18:59 Intake Total 240 Balance 240 Weight 55 kg Intake: Oral 240 Other: Voiding Method Toilet Toilet # Voids 3 1 # Bowel Movements 4 - Labs CBC & Chem 7: 09/21/23 06:01 09/21/23 06:01 Labs: Abnormal Lab Results - Last 24 Hours (Table) 09/21/23 09/21/23 Range/Units 06:01 06:01 RBC 3.24 L (4.10-5.20) X 10*6/uL Hgb 7.8 L (12.0-15.0) g/dL Hct 26.8 L (37.2-46.3) % MCH 24.1 L (27.0-32.0) pg MCHC 29.1 L (32.0-37.0) g/dL RDW 15.8 H (11.5-14.5) % Sodium 147 H (135-145) mmol/L Chloride 110 H (96-109) mmol/L Anion Gap 12.50 H (4.00-12.00) mmol/L Est GFR (CKD-EPI) 54 L (>=60) BUN/Creatinine Ratio 10.00 L (12.00-20.00) Ratio Calcium 7.6 L (8.7-10.3) mg/dL Microbiology - Last 24 Hours (Table) 09/19/23 06:07 Urine Culture - Final Urine,Voided Escherichia coli
--- NOTE | 2023-09-21 17:34 | P.PN ---
Subjective Progress Note Date: 09/21/23 88-year-old female who presented to the hospital due to outpatient labs of a hemoglobin of 5.9. She was getting routine blood work for her heart cath and ART for next week. She is being evaluated for a possible TAVR procedure for her aortic stenosis. Patient does report having a dark brown stool with red spots noted on the stool x 3 episodes that started on Friday. Patient reports she has had similar episodes in the past and contributed to bleeding from a rectal fissure which she has had since her pregnancies many years ago. Patient has been short of breath, fatigued and dizzy. Patient did receive 1 unit of blood and repeat hemoglobin is 7.2. Patient reports her last EGD and colonoscopy was probably over 10 years ago and reports it as normal findings. She denies being on any blood thinners. Patient denies any abdominal pain. 09/21/2023 Patient is seen and evaluated in room at bedside Vital signs are reviewed and stable with temperature 97.8, pulse 60, respiration 18, blood pressure 116/54 Lab review reveals WBC 5.7, hemoglobin 7.8, hematocrit 26.8 and platelet count of 277, sodium 147, potassium 3.9, BUNs/creatinine of 10/1.0 --Patient is scheduled for EGD/colonoscopy tomorrow morning -Hemoglobin remained stable at 7.8 after transfusion with 1 unit packed RBCs -- Patient will remain on a clear liquid diet and will be made n.p.o. at midnight Objective - Vital Signs Vital signs: Vital Signs Temp 98.1 F 09/21/23 07:23 Pulse 59 L 09/21/23 07:23 Resp 18 09/21/23 07:23 BP 120/52 09/21/23 07:23 Pulse Ox 93 L 09/21/23 07:23 FiO2 Intake & Output 09/20/23 09/21/23 09/21/23 18:59 06:59 18:59 Intake Total 240 Balance 240 Weight 55 kg Intake: Oral 240 Other: Voiding Method Toilet # Voids 3 1 # Bowel Movements 1 - Exam GENERAL: BMI 23, reclining bed awake tired. EYES: Pupils equal. Conjunctiva pale l. HEENT: External appearance of nose and ears normal, oral cavity grossly normal. NECK: JVD not raised; masses not palpable. HEART: First and second heart sounds are normal; no edema. LUNGS: Respiratory rate normal; clear to auscultation. ABDOMEN: Soft, nontender, liver spleen not palpable, no masses palpable. PSYCH: Answering simple questions a bit forgetful l. MUSCULOSKELETAL:No Clubbing/cyanosis;muscles-grossly intact. OA NEUROLOGICAL: Cranial nerves grossly intact; no facial asymmetry, power and sensation grossly intact. LYMPHATICS: No lymph nodes palpable in the axilla and neck - Labs CBC & Chem 7: 09/21/23 06:01 09/21/23 06:01 Labs: Abnormal Lab Results - Last 24 Hours (Table) 09/21/23 09/21/23 Range/Units 06:01 06:01 RBC 3.24 L (4.10-5.20) X 10*6/uL Hgb 7.8 L (12.0-15.0) g/dL Hct 26.8 L (37.2-46.3) % MCH 24.1 L (27.0-32.0) pg MCHC 29.1 L (32.0-37.0) g/dL RDW 15.8 H (11.5-14.5) % Sodium 147 H (135-145) mmol/L Chloride 110 H (96-109) mmol/L Anion Gap 12.50 H (4.00-12.00) mmol/L Est GFR (CKD-EPI) 54 L (>=60) BUN/Creatinine Ratio 10.00 L (12.00-20.00) Ratio Calcium 7.6 L (8.7-10.3) mg/dL Microbiology - Last 24 Hours (Table) 09/19/23 06:07 Urine Culture - Preliminary Urine,Voided Gram Neg Bacilli Assessment and Plan Assessment: 1. Severe symptomatic anemia the patient is been having dark stools for few days. Also noticed some blood. Denies any abdominal pain. Denies any take intake of NSAIDs. General surgery consulted. Recommendations noted and appreciated; patient is scheduled for EGD/colonoscopy on Friday Patient did receive 1 unit of blood 2. Hyperlipidemia Zocor 5 mg a day 3. Essential hypertension Amlodipine 5 mg a day 4. Depression Zoloft 25 mg a day 5 hypothyroid Synthroid 112 mcg a day DVT prophylaxis; SCDs only given profound anemia CODE STATUS full code
[2023-09-22 08:38] LABS: Basophils # (A) 0.03 X 10*3/uL (0.00-0.10); Basophils % (A) 0.4 %; Eosinophils # (A) 0.11 X 10*3/uL (0.04-0.35); Eosinophils % (A) 1.5 %; HCT 24.2 % (37.2-46.3); HGB 7.1 g/dL (12.0-15.0); Lymphocytes # (A) 1.62 X 10*3/uL (0.90-5.00); MCHC 29.3 g/dL (32.0-37.0); MCV 81.8 FL (80.0-97.0); Mean Platelet Volume 10.1 FL (9.5-12.2); Monocytes # (A) 0.53 X 10*3/uL (0.20-1.00); Monocytes % (A) 7.2 %; NRBC Per 100 WBC 0 X 10*3/uL (0.00-0.01); Neutrophils # (A) 5.05 X 10*3/uL (1.80-7.70); Neutrophils % (A) 68.6 %; Platelet Count 271 X 10*3/uL (140-440); RBC 2.96 X 10*6/uL (4.10-5.20); RDW 16.1 % (11.5-14.5); WBC 7.36 X 10*3/uL (4.50-10.00)
[2023-09-22 08:49] LABS: Blood Urea Nitrogen 9.3 mg/dL (9.0-27.0); Carbon Dioxide 26.5 mmol/L (21.6-31.8); Chloride 105 mmol/L (96-109); Glucose 97 mg/dL (70-110); Potassium 3.8 mmol/L (3.5-5.5); Sodium 143 mmol/L (135-145)
[2023-09-22] MEDS ORDERED: PROPOFOL 10 MG/ML 20 ML VIAL IV ONE (13:05)
[2023-09-22] MEDS: LACTATED RINGERS 1,000 ML IV ONE (13:05)
[2023-09-22 16:11] VITALS: BMI 23.1
--- NOTE | 2023-09-22 16:18 | P.PCN ---
Date of Procedure: 09/22/23 Procedure(s) Performed: PREOPERATIVE DIAGNOSIS: Anemia, GI bleed POSTOPERATIVE DIAGNOSIS: Gastritis, hiatal hernia, right-sided AVMs, diverticulosis PROCEDURE: 1. EGD with biopsy 2. Colonoscopy with cauterization AVM ANESTHESIA: MAC SURGEON: Nishant Ramirez M.D. SPECIMENS: Antrum ENDOSCOPIC PROCEDURE: The patient was on the endoscopy table in the left decubitus position. The Olympus gastroscope was inserted into the oropharynx and passed under direct visualization to the region of the third portion of the duodenum. From that point the scope was slowly withdrawn inspecting all surfaces carefully. There were no neoplastic inflammatory or polypoid lesions throughout the duodenum. The pylorus was widely patent. The stomach was carefully inspected. There was mild gastritis present. A biopsy of the antrum took place to rule out H. pylori. Retroflexion revealed a small hiatal hernia. The GE junction was present 1.5 cm above the diaphragm. The esophagus was then carefully examined. There were no neoplastic inflammatory or polypoid lesions throughout the visualized esophagus. The patient was kept on the endoscopy table in the left decubitus position. The Olympus colonoscope was inserted into the anus and passed under direct visualization to the base of the cecum. The appendiceal orifice was visualized. From that point the scope was slowly withdrawn inspecting all surfaces carefully. There were no neoplastic inflammatory or polypoid lesions throughout the cecum, ascending, transverse, descending, sigmoid and rectum. The patient did have 2 areas of superficial vasculature in the ascending colon consistent with AVM. These were nonbleeding. These were both treated with gold probe cauterization. Initially we tried the argon beam weigh and charge worker however it was not functioning properly at this time and this was aborted. There was extensive diverticulosis noted throughout the colon. Digital rectal examination was normal. The patient was taken to the recovery room in stable condition per anesthesia guidelines. RECOMMENDATIONS: Source of anemia could be related to right-sided AVM. Will need to follow the patient's hemoglobin closely. May proceed with upcoming cardiac procedure. Patient at increased risk for bleeding and recurrent anemia if anticoagulation required following the procedure. If patient has persistent or recurrent anemia recommend GI evaluation for second attempt at ablation of these AVMs.
[2023-09-22] MEDS: ACETAMINOPHEN TAB 325 MG TAB PO PRN (21:03)
[2023-09-22 21:14] VITALS: RESP 16
--- NOTE | 2023-09-23 07:12 | PN ---
PROGRESS NOTE DATE OF SERVICE: 09/22/2023 SUBJECTIVE: This is an 88-year-old woman who was admitted with severe symptomatic anemia, is scheduled to have scopes today by surgery. No chest pain, no palpitation. OBJECTIVE: VITAL SIGNS: Pulse 64, blood pressure 119/50, and respirations 17. CHEST: Clear to auscultation. CARDIOVASCULAR: S1, S2. ABDOMEN: Soft. LABORATORY DATA: Hemoglobin 7.1. ASSESSMENT: 1. Severe symptomatic anemia with melena for endoscopes. 2. Hyperlipidemia. 3. Hypertension. 4. Depression. 5. Hypothyroidism. RECOMMENDATIONS: Recommended to continue current management, continue symptomatic treatment. I would recommend 1 more unit of transfusion with Lasix 40 for symptomatic anemia. Repeat labs will be ordered tomorrow. Closely follow with surgery. Await endoscopies. Guarded prognosis. Further recommendations to follow. MMODL / IJN: [id number] /
[2023-09-23 12:38] LABS: Calcium 6.8 mg/dL (8.7-10.3); Carbon Dioxide 25.2 mmol/L (21.6-31.8); Chloride 106 mmol/L (96-109); Glucose 104 mg/dL (70-110); Sodium 143 mmol/L (135-145)
[2023-09-23 12:44] LABS: Basophils # (A) 0.02 X 10*3/uL (0.00-0.10); Basophils % (A) 0.3 %; Eosinophils # (A) 0.13 X 10*3/uL (0.04-0.35); HCT 27.3 % (37.2-46.3); HGB 8.3 g/dL (12.0-15.0); Lymphocytes # (A) 1.42 X 10*3/uL (0.90-5.00); Lymphocytes % (A) 22.3 %; MCHC 30.4 g/dL (32.0-37.0); MCV 82.2 FL (80.0-97.0); Mean Platelet Volume 10.5 FL (9.5-12.2); Monocytes # (A) 0.55 X 10*3/uL (0.20-1.00); Monocytes % (A) 8.6 %; NRBC Per 100 WBC 0 X 10*3/uL (0.00-0.01); Neutrophils # (A) 4.24 X 10*3/uL (1.80-7.70); Neutrophils % (A) 66.5 %; Platelet Count 254 X 10*3/uL (140-440); RBC 3.32 X 10*6/uL (4.10-5.20); RDW 16.1 % (11.5-14.5); WBC 6.38 X 10*3/uL (4.50-10.00)
[2023-09-23 13:55] VITALS: BP 124/57; PULSE 70; TEMP 98.5
--- NOTE | 2023-09-23 14:58 | P.PN ---
Progress Note - Text Progress Note Date: 09/23/23 Patient will require a walker on discharge to assist with ADLs as patient is having generalized weakness secondary to symptomatic anemia. Patient is able to ambulate with a walker. Prescription provided to case management
--- NOTE | 2023-09-23 15:41 | P.PN ---
Subjective Progress Note Date: 09/23/23 Principal diagnosis: Anemia Patient feels well today. No pain. Yesterday's endoscopy showed no active bleeding. AVM on the right side of the colon as well as gastritis was found. These could be etiologies for recent anemia. Objective - Vital Signs Vital signs: Vital Signs Temp 98.5 F 09/23/23 12:36 Pulse 70 09/23/23 12:36 Resp 16 09/23/23 12:36 BP 124/57 09/23/23 12:36 Pulse Ox 93 L 09/23/23 12:36 FiO2 Intake & Output 09/22/23 09/23/23 09/23/23 18:59 06:59 18:59 Intake Total 1050 Balance 1050 Weight 60.951 kg 61 kg Intake: IV 500 Oral 240 Blood Product 310 Rc As-1 Unit 310 [id number] Other: Voiding Method Toilet Toilet Toilet # Voids 2 1 - Exam Abdomen: Soft, nontender, nondistended - Labs CBC & Chem 7: 09/23/23 07:46 09/23/23 07:46 Labs: Abnormal Lab Results - Last 24 Hours (Table) 09/22/23 09/23/23 09/23/23 Range/Units 11:30 07:46 07:46 RBC 3.32 L (4.10-5.20) X 10*6/uL Hgb 8.3 L (12.0-15.0) g/dL Hct 27.3 L (37.2-46.3) % MCH 25.0 L (27.0-32.0) pg MCHC 30.4 L (32.0-37.0) g/dL RDW 16.1 H (11.5-14.5) % Est GFR (CKD-EPI) 54 L (>=60) Calcium 6.8 L (8.7-10.3) mg/dL Crossmatch See Detail Assessment and Plan (1) Anemia Narrative/Plan: Patient doing well today. May discharge from our standpoint. Will sign off. Please recontact if needed. Current Visit: Yes Status: Acute Code(s): D64.9 - ANEMIA, UNSPECIFIED SNOMED Code(s): 406144722
--- NOTE | 2023-09-26 05:13 | P.DS ---
Providers Date of admission: 09/18/23 20:39 Expected date of discharge: 09/23/23 Attending physician: Fuad Solorio Consults: 09/18/23 20:36 Consult Physician Urgent Consulting Provider: Nishant Ramirez Consult Reason/Comments: stool occ + anemia Do you want consulting provider notified?: Already Contacted 09/19/23 08:51 Consult Physician Urgent Consulting Provider: Romeo Paniagua Consult Reason/Comments: heart murmur matt vianey next week Do you want consulting provider notified?: Yes, Notify in am Primary care physician: Mariza Bradley Hospital Course: Final diagnosis -Severe symptomatic anemia the patient is been having dark stools for few days. Status post EGD/colonoscopy with acute gastritis, AVM status post cauterization and diverticulosis. Patient did receive 1 unit of PRBCs on admission -Hyperlipidemia -Essential hypertension -Depression -hypothyroid -GI prophylaxis DVT prophylaxis Full code Discharge disposition Patient is being discharged in a stable condition with guarded prognosis to home. Patient will follow-up with Dr. Bradley in the outpatient setting upon discharge. Patient is to continue with outpatient follow-up with cardiology as well as general surgery as scheduled. Total time taken is greater than 35 minutes. Hospital course This is a 88year-old female who was recently admitted with low hemoglobin having symptoms of anemia being closely monitored. Patient is status post 1 unit of PRBC. Patient following with cardiology outpatient scheduled to undergo intervention and was having some routine labs and noted to have significant low hemoglobin and sent here for further evaluation. Patient had been having symptoms and evaluated by general surgery recommending EGD/colonoscopy. Patient is status post EGD/colonoscopy showing AVMs requiring cauterization, diverticulosis as well as acute gastritis. Patient will continue on Protonix and outpatient follow-up. Recommend repeat labs in the next few days. Patient instructed to follow-up with primary care provider as well as cardiology outpatient. Please refer to other consultation notes for further HPI. Currently no reports of chest pain, shortness of breath, or palpitations. Patient is afebrile. No reports of nausea or vomiting and patient is tolerating diet. Patient will be discharged home today. Guarded prognosis given patient's significant comorbidities. Physical exam: Gen: This is a 88-year-old female who is awake, alert and oriented x 3, thin built, elderly appearing, well-developed HEENT: Head is atraumatic, normocephalic. Pupils equal, round. Sclerae is anicteric. NECK: Supple. No JVD. No lymphadenopathy. No thyromegaly. LUNGS: Diminished breath sounds bilaterally otherwise clear to auscultation. No wheezes or rhonchi. No intercostal retractions. HEART: S1, S2 are muffled ABDOMEN: Soft. Bowel sounds are present. No masses. No tenderness. EXTREMITIES: No pedal edema. No calf tenderness. NEUROLOGICAL: Patient is awake, alert and oriented x3. Cranial nerves 2 through 12 are grossly intact. Please refer to medication reconciliation sheet for a list of medications. The impression and plan of care has been dictated by Pari Torres, Nurse Practitioner as directed. Dr. Duarte MD I have performed a history and examination and MDM of this patient, discussed the same with the dictator, and agree with the dictator's assessment and plan as written ,documented as a scribe. Based on total visit time, I have performed more than 50% of the visit. Patient Condition at Discharge: Fair Plan - Discharge Summary New Discharge Prescriptions: New Acetaminophen Tab [Tylenol] 650 mg PO Q6HR PRN tab PRN Reason: Mild Pain Or Fever > 100.5 Pantoprazole [Protonix] 40 mg PO DAILY #30 tab Continue Sertraline [Zoloft] 25 mg PO DAILY Meclizine [Antivert] 25 mg PO TID Levothyroxine Sodium [Synthroid] 112 mcg PO DAILY Cyanocobalamin [Vitamin B-12 Injection] 1,000 mcg SQ QMONTHLY Simvastatin [Zocor] 5 mg PO DAILY amLODIPine [Norvasc] 5 mg PO DAILY Discharge Medication List Cyanocobalamin [Vitamin B-12 Injection] 1,000 mcg SQ QMONTHLY 09/18/23 [History] Levothyroxine Sodium [Synthroid] 112 mcg PO DAILY 09/18/23 [History] Meclizine [Antivert] 25 mg PO TID 09/18/23 [History] Sertraline [Zoloft] 25 mg PO DAILY 09/18/23 [History] Simvastatin [Zocor] 5 mg PO DAILY 09/18/23 [History] amLODIPine [Norvasc] 5 mg PO DAILY 09/18/23 [History] Acetaminophen Tab [Tylenol] 650 mg PO Q6HR PRN tab 09/23/23 [Rx] Pantoprazole [Protonix] 40 mg PO DAILY #30 tab 09/23/23 [Rx] Follow up Appointment(s)/Referral(s): Nishant Ramirez MD [Medical Doctor] - As Needed (General surgery ) Romeo Paniagua DO [STAFF PHYSICIAN] - 09/30/23 8:45 am (Cardiology) Mariza Bradley DO [Primary Care Provider] - 09/26/23 11:15 am (Primary Care Physician ) [facility] Visiting Nurse, [NON-STAFF] - 1 Week Patient Instructions/Handouts: Pantoprazole (By mouth), Gastrointestinal Bleeding (DC), Anemia (DC) Activity/Diet/Wound Care/Special Instructions: Activity limited until follow-up/walker provided. Follow-up with primary care provider on discharge Follow-up with cardiology as discussed previously Follow-up with general surgery outpatient Repeat labs of CBC in the next 2 to 3 days Discharge Disposition: HOME SELF-CARE
--- NOTE | 2023-09-26 11:38 | CDI ---
Documentation Clarification Form Date: 09/26/2023 11:26:29 AM From: Penelope Meza RN, CCDS Phone: [phone] Admit Date: 09/18/2023 08:39:00 PM Patient Name: Minnie Juan Visit Number: [id number] Discharge Date: 09/23/2023 03:40:00 PM ATTENTION: The Clinical Documentation Specialists (CDI) and [facility] Coding Staff appreciate your assistance in clarifying documentation. Please respond to the clarification below the line at the bottom and electronically sign. The CDI & [facility] Coding staff will review the response and follow-up if needed. Please note: Queries are made part of the Legal Health Record. If you have any questions, please contact the author of this message via ITS. Dr. Fuad Solorio Unspecified anemia is documented in the progress notes. Additional specificity regarding the type and acuity of anemia is requested. History/Risk Factors: Aortic stenosis and is scheduled for TAVR next week. Called into ED for low Hgb. Reports fatigue and weakness and streaks of blood in stool. Admitted with anemia and GI bleed. Clinical indicators: 09/17-09/22 Hemoglobin: 6.1-7.7-8.3 09/17-09/22 Hematocrit: 19.9-23.6-27.3 09/17 Stool OB + H&P: "Severe symptomatic anemia the patient is been having dark stools for few days. Also noticed some blood. " 09/21 Px: Gastritis, hiatal hernia, right-sided AVMs, diverticulosis Discharge summary: "Severe symptomatic anemia. The patient has been having dark stools for few days. Status post EGD/colonoscopy with acute gastritis, AVM status post cauterization and diverticulosis. Patient did receive 1 unit of PRBCs on admission." Treatment: Daily CBC; 1-unit PRBC's on 09/18 and 09/21; IV Protonix 40mg x1 on 09/17 then BID Please clarify the type and acuity of anemia: [ ] Acute blood loss anemia [ ] Unable to determine [ ] Other, please specify pt was taken over by dr grecia CHINO
--- NOTE | 2023-10-02 12:32 | CDI ---
Documentation Clarification Form Date: 09/26/2023 11:26:00 AM From: Penelope Meza RN, CCDS Phone: [phone] Admit Date: 09/18/2023 08:39:00 PM Patient Name: Minnie Juan Visit Number: [id number] Discharge Date: 09/23/2023 03:40:00 PM ATTENTION: The Clinical Documentation Specialists (CDI) and [facility] Coding Staff appreciate your assistance in clarifying documentation. Please respond to the clarification below the line at the bottom and electronically sign. The CDI & [facility] Coding staff will review the response and follow-up if needed. Please note: Queries are made part of the Legal Health Record. If you have any questions, please contact the author of this message via ITS. Dr. Fuad Solorio Unspecified anemia is documented in the progress notes. Additional specificity regarding the type and acuity of anemia is requested. History/Risk Factors: Aortic stenosis and is scheduled for TAVR next week. Called into ED for low Hgb. Reports fatigue and weakness and streaks of blood in stool. Admitted with anemia and GI bleed. Clinical indicators: 09/17-09/22 Hemoglobin: 6.1-7.7-8.3 09/17-09/22 Hematocrit: 19.9-23.6-27.3 09/17 Stool OB + H&P: "Severe symptomatic anemia the patient is been having dark stools for few days. Also noticed some blood. " 09/21 Px: Gastritis, hiatal hernia, right-sided AVMs, diverticulosis Discharge summary: "Severe symptomatic anemia. The patient has been having dark stools for few days. Status post EGD/colonoscopy with acute gastritis, AVM status post cauterization and diverticulosis. Patient did receive 1 unit of PRBCs on admission." Treatment: Daily CBC; 1-unit PRBC's on 09/18 and 09/21; IV Protonix 40mg x1 on 09/17 then BID Please clarify the type and acuity of anemia: [ ] Acute blood loss anemia [ ] Unable to determine [ ] Other, please specify Dr Duarte CHINO
--- NOTE | 2023-10-07 16:34 | CDI ---
Documentation Clarification Form Date: 09/26/2023 11:26:00 AM From: Penelope Meza RN, CCDS Phone: [phone] Admit Date: 09/18/2023 08:39:00 PM Patient Name: Minnie Juan Visit Number: [id number] Discharge Date: 09/23/2023 03:40:00 PM ATTENTION: The Clinical Documentation Specialists (CDI) and [facility] Coding Staff appreciate your assistance in clarifying documentation. Please respond to the clarification below the line at the bottom and electronically sign. The CDI & [facility] Coding staff will review the response and follow-up if needed. Please note: Queries are made part of the Legal Health Record. If you have any questions, please contact the author of this message via ITS. Dr. Yassine Ramachandran Unspecified anemia is documented in the progress notes. Additional specificity regarding the type and acuity of anemia is requested. History/Risk Factors: Aortic stenosis and is scheduled for TAVR next week. Called into ED for low Hgb. Reports fatigue and weakness and streaks of blood in stool. Admitted with anemia and GI bleed. Clinical indicators: 09/17-09/22 Hemoglobin: 6.1-7.7-8.3 09/17-09/22 Hematocrit: 19.9-23.6-27.3 09/17 Stool OB + H&P: "Severe symptomatic anemia the patient is been having dark stools for few days. Also noticed some blood. " 09/21 Px: Gastritis, hiatal hernia, right-sided AVMs, diverticulosis Discharge summary: "Severe symptomatic anemia. The patient has been having dark stools for few days. Status post EGD/colonoscopy with acute gastritis, AVM status post cauterization and diverticulosis. Patient did receive 1 unit of PRBCs on admission." Treatment: Daily CBC; 1-unit PRBC's on 09/18 and 09/21; IV Protonix 40mg x1 on 09/17 then BID Please clarify the type and acuity of anemia: [ x ] Acute blood loss anemia [ ] Unable to determine [ ] Other, please specify MTDD
== END 2023-09-23 15:40 | disposition home or self-care (01) | DRG 378 ==
LOC: EC 17:37 → 3SCARD 20:38 → OBSVTOIN 20:39 → 3SCARD 09-19 03:06 → 4SSUR 09-19 13:26 → 5NMEDONC 09-19 15:42
PROVIDERS: ADMIT Hospitalist; ATTEND Hospitalist
PROC: 30233N1 Transfusion of Nonautologous Red Blood Cells into Peripheral Vein, Percutaneous Approach (ICD-10-PCS; 2023-09-19)
PROC: 0W3P8ZZ Control Bleeding in Gastrointestinal Tract, Via Natural or Artificial Opening Endoscopic (ICD-10-PCS; principal; 2023-09-22 14:15)
PROC: 0DB78ZX Excision of Stomach, Pylorus, Via Natural or Artificial Opening Endoscopic, Diagnostic (ICD-10-PCS; 2023-09-22 14:15)
DX: K55.21 Angiodysplasia of colon with hemorrhage (principal); D62 Acute posthemorrhagic anemia; I35.0 Nonrheumatic aortic (valve) stenosis; K29.70 Gastritis, unspecified, without bleeding; K44.9 Diaphragmatic hernia without obstruction or gangrene; E03.9 Hypothyroidism, unspecified; E78.5 Hyperlipidemia, unspecified; I10 Essential (primary) hypertension; Z79.890 Hormone replacement therapy; Z79.899 Other long term (current) drug therapy
CPT/HCPCS: 36415; 36430; 43239; 45382; 71046; 80048; 80053; 81001; 82272; 83605; 83735; 85025; 85027; 85610; 85730; 86850; 86900; 86901; 86920; 87077; 87086; 87186; 88305; 93005; 96374; 96376; 99285

== ENCOUNTER → 2023-09-18 | Outpatient (CLI) | payer MEDICARE, OTHER ==
[2023-09-18 15:39] LABS: HCT 20.8 % (37.2-46.3); HGB 5.9 g/dL (12.0-15.0); MCH 23.2 pg (27.0-32.0); MCHC 28.4 g/dL (32.0-37.0); MCV 81.9 FL (80.0-97.0); Mean Platelet Volume 10.3 FL (9.5-12.2); NRBC Per 100 WBC 0 X 10*3/uL (0.00-0.01); Platelet Count 255 X 10*3/uL (140-440); RBC 2.54 X 10*6/uL (4.10-5.20); WBC 6.93 X 10*3/uL (4.50-10.00)
[2023-09-18 15:50] LABS: Carbon Dioxide 23.2 mmol/L (21.6-31.8); Chloride 105 mmol/L (96-109); Potassium 3.8 mmol/L (3.5-5.5); Sodium 142 mmol/L (135-145)
== END | disposition home or self-care (01) ==
LOC: LABWHC1 11:01
PROVIDERS: ATTEND Internal Medicine
DX: Z01.812 Encounter for preprocedural laboratory examination (principal); I35.0 Nonrheumatic aortic (valve) stenosis
CPT/HCPCS: 36415; 80051; 82565; 84520; 85027

== ENCOUNTER 2023-09-26 10:56 | Day surgery (SDC) | payer MEDICARE, OTHER ==
[~2023-09-26 10:56] MED LIST: ALPRAZolam 0.25 MG TAB PO PRN; ALPRAZolam 0.5 MG TAB PO PRN; ASPIRIN 325 MG TAB PO STA; NITROGLYCERIN SL TABS 0.4 MG TAB SUBLINGUAL PRN; SODIUM CHLORIDE 0.9% 1,000 ML in EMPTY BAG 1 BAG IV SCH
[2023-09-26] MEDS: SODIUM CHLORIDE 0.9% 1,000 ML IV ONE ×2 (11:25→15:07)
[2023-09-26 12:08] LABS: Anisocytosis Slight; Basophils % (A) 0 %; Eosinophils # (A) 0.1 k/uL (0-0.7); Eosinophils % (A) 2 %; HCT 28.8 % (34.0-46.0); HGB 8.9 gm/dL (11.4-16.0); Hypochromasia Moderate; Lymphocytes # (A) 1.2 k/uL (1.0-4.8); Lymphocytes % (A) 24 %; MCH 25.5 pg (25.0-35.0); MCHC 30.9 g/dL (31.0-37.0); MCV 82.7 fL (80.0-100.0); Mean Platelet Volume 7.3; Monocytes # (A) 0.3 k/uL (0-1.0); Monocytes % (A) 6 %; Neutrophils # (A) 3.1 k/uL (1.3-7.7); Neutrophils % (A) 64 %; Platelet Count 269 k/uL (150-450); RBC 3.48 m/uL (3.80-5.40); RDW 17.1 % (11.5-15.5); WBC 4.9 k/uL (3.8-10.6)
[2023-09-26] MEDS ORDERED: LIDOCAINE 1% INJ 10MG/ML (20 ML MDV) ONE ×2 (13:23→14:25)
[2023-09-26] MEDS ORDERED: VERAPAMIL 2.5 MG/ML 2 ML AMP ONE ×2 (13:23→14:36)
[2023-09-26] MEDS ORDERED: fentaNYL (PF) 50 MCG/ML 2 ML AMP ONE ×2 (13:24→14:00)
[2023-09-26] MEDS: BENZOCAINE SPRAY 1 CAN TOPICAL ONE (14:00)
[2023-09-26] MEDS: MIDAZOLAM 2 MG/2 ML VIAL IVP ONE (14:04)
[2023-09-26] MEDS: fentaNYL (PF) 50 MCG/ML 2 ML AMP IVP ONE (14:04)
[2023-09-26] MEDS ORDERED: NALOXONE 0.4 MG/ML 1 ML VIAL ONE (14:10)
[2023-09-26] MEDS: NALOXONE 0.4 MG/ML 1 ML VIAL IVP ONE (14:13)
[2023-09-26] MEDS ORDERED: FLUMAZENIL 0.1 MG/ML 5 ML VIAL IVP ONE (14:13)
--- NOTE | 2023-09-26 14:24 | P.TEE ---
Description of Procedure(s): Procedure performed: Transesophageal Echocardiogram with color flow doppler, pulsed wave doppler and continuous wave doppler, moderate conscious sedation Moderate conscious sedation: Moderate conscious sedation was supplied with direct supervision of myself using Versed and Fentanyl. Complications: none Indications: severe aortic stenosis PROCEDURE: After the risks, benefits and alternatives of the above mentioned procedure was explained in detail with the patient, informed consent was obtained. Patient was brought to the lab in a fasting state. Patient was given IV Versed and Fentanyl for sedation. The throat was sprayed with Hurricane to anesthetize the throat. A lubricated Omni probe was then introduced into the esophagus and stomach and multiple views were obtained. 2D echo with color flow doppler, pulsed wave doppler and continuous wave doppler was utilized. The probe was then removed. Patient tolerated the procedure well. Patient was transferred to the post procedure area in stable and satisfactory condition. FINDINGS: 1. The aortic valve is tricuspid with severe aortic stenosis with aortic valve area 0.7 cm by planimetry. 2. The mitral valve appears be normal with mild regurgitation. 3. Tricuspid valve appears normal with mild tricuspid regurgitation 4. The interatrial septum is intact. 5. Left atrial appendage is free of clot. 6. Left ventricular ejection fraction is 55%
[2023-09-26] MEDS: LIDOCAINE 1% INJ 10MG/ML (20 ML MDV) SQ ONE (14:27)
[2023-09-26] MEDS: HEPARIN SODIUM 1,000 UN/ML (10ML VL) IVP ONE ×2 (14:39→14:46)
[2023-09-26] MEDS: IOPAMIDOL-370 100ML BTL INJ ONE (14:54)
--- NOTE | 2023-09-26 15:03 | P.CARDCATH ---
Description of Procedure: PROCEDURES PERFORMED: Left heart catheterization, bilateral coronary angiography, iFR LAD, Circumflex, ultrasound guided arterial access INDICATION: [] CONSENT:I have discussed the risks, benefits and alternative therapies for the above-mentioned procedure and for both sedation/analgesia as well as necessary blood product administration, if indicated, as they pertain to this patient. The patient has indicated understanding and acceptance of the risks and procedures discussed. PROCEDURE: After the risks, benefits and alternatives of the above mentioned procedure explained in detail with the patient, informed consent was obtained. Patient was taken to the catheterization lab and prepped and draped in usual fashion. Ultrasound guidance was used to assess for arterial access. 1% lidocaine was used to anesthetize the right radial artery. A 6-Malaysian sheath was placed in the right radial artery using modified Seldinger technique and ultrasound guidance. Left coronary angiography was performed with a 5-Malaysian JL 3.5 catheter and right coronary angiography was performed with a 5-Malaysian AR2 catheter in various views. The decision was made to perform iFR of the LAD and circumflex. A 0.014 pressure wire was advanced into the left main and normalized. It was then advanced 1 cm distal to the proximal circumflex lesion and was abnormal at 0.88. Next it was advanced back a left main and then 1 cm distal to the LAD lesion and was also abnormal at 0.84. A 5-Malaysian FR5 catheter was inserted into the left ventricle and pressure measurements were obtained. The right radial sheath was removed and a TR band was placed with hemostasis achieved. The patient tolerated the procedure well. Patient was transported back to the post catheterization holding area in stable condition. Conscious Sedation: Patient was monitored under the direct supervision of myself for conscious sedation using Versed and fentanyl for a total duration of 29 minutes HEMODYNAMICS: aorta: 138/52 LV: 171/2, LVEDP 11, mean gradient 40 mmHg SELECTIVE CORONARY ARTERIOGRAPHY: LEFT MAIN: The left main is a large caliber vessel which trifurcates into the LAD, ramus and circumflex. There is no significant stenosis. LEFT ANTERIOR DESCENDING CORONARY ARTERY: LAD is a large caliber vessel which wraps around to the apex. There is in the ostial LAD 60-70% stenosis and otherwise mild luminal irregularities of the mid and distal LAD. Diagonal 1 has a 40-50% stenosis. RAMUS INTERMEDIUS: the ramus is a small caliber vessel without any significant stenosis. LEFT CIRCUMFLEX CORONARY ARTERY: Left circumflex is a large caliber vessel with a proximal 70% stenosis and otherwise mild luminal irregularities. The circumflex gives off the PDA and is the dominant vessel. RIGHT CORONARY ARTERY: The right coronary artery is a small caliber vessel which gives off an acute marginal branch. There is a mid RCA 50% stenosis. FINAL IMPRESSION: 1. CAD as described above including proximal LAD 60-70% stenosis, diagonal 1 40-50% stenosis, proximal circumflex 70% stenosis 2. Normal left sided filling pressures 3. iFR abnormal of LAD and circumflex 4. Severe aortic stenosis with mean gradient 40 mmHg PLAN: 1. Aggressive risk factor modification per most recent ACC/AHA guidelines. 2. Evaluate for possible aortic valve replacement and PCI however complicated by her significant anemia.
[2023-09-26] MEDS ORDERED: RX INFO: IV CONTRAST WAS GIVEN 1 EACH MISC MISCELLANE PRN ×2 (15:04→15:10)
[2023-09-26] MEDS ORDERED: SODIUM CHLORIDE 0.9% 1,000 ML IV SCH (15:15)
[2023-09-26 15:45] VITALS: RESP 16
[2023-09-26 16:26] VITALS: TEMP 97.8
[2023-09-26 18:21] VITALS: BP 132/69; PULSE 65
== END 2023-09-26 19:10 | disposition home or self-care (01) ==
LOC: CATHCVL 10:56 → 6NMEDSUR 14:54 → CATHCVL 19:10
PROVIDERS: ATTEND Internal Medicine
DX: I08.3 Combined rheumatic disorders of mitral, aortic and tricuspid valves (principal); I25.10 Atherosclerotic heart disease of native coronary artery without angina pectoris; I10 Essential (primary) hypertension; E78.5 Hyperlipidemia, unspecified; J44.9 Chronic obstructive pulmonary disease, unspecified; Z79.899 Other long term (current) drug therapy
CPT/HCPCS: 99152; 99153; 93312; 93320; 93325; 93458; 93799; 76937; 85025; C1769 ×3; C1894; J2250; J2310; J2001; J3010; J1644; Q9967

== ENCOUNTER 2023-10-09 06:33 | Outpatient (CLI) | payer MEDICARE ==
[2023-10-09 07:50] VITALS: BP 151/69; PULSE 71; RESP 16; TEMP 97.7
[2023-10-09 08:38] LABS: INR 0.9 (<1.2); Partial Thromboplastin Time 26.3 sec (22.0-30.0); Prothrombin Time 10.4 sec (10.0-12.5)
[2023-10-09 10:59] LABS: Basophils # (A) 0.04 X 10*3/uL (0.00-0.10); Basophils % (A) 0.7 %; Eosinophils # (A) 0.17 X 10*3/uL (0.04-0.35); Eosinophils % (A) 2.9 %; HCT 31.8 % (37.2-46.3); HGB 9.4 g/dL (12.0-15.0); Lymphocytes # (A) 1.69 X 10*3/uL (0.90-5.00); MCH 24.9 pg (27.0-32.0); MCHC 29.6 g/dL (32.0-37.0); MCV 84.1 FL (80.0-97.0); Mean Platelet Volume 10.4 FL (9.5-12.2); Monocytes # (A) 0.45 X 10*3/uL (0.20-1.00); Monocytes % (A) 7.7 %; NRBC Per 100 WBC 0 X 10*3/uL (0.00-0.01); Neutrophils # (A) 3.46 X 10*3/uL (1.80-7.70); Neutrophils % (A) 59.5 %; Platelet Count 336 X 10*3/uL (140-440); RBC 3.78 X 10*6/uL (4.10-5.20); RDW 16.7 % (11.5-14.5); WBC 5.82 X 10*3/uL (4.50-10.00)
[2023-10-09 11:18] LABS: ALT 8 U/L (8-44); AST 23 U/L (13-35); Albumin 4.4 g/dL (3.8-4.9); Albumin/Globulin Ratio 1.38 Ratio (1.60-3.17); Alkaline Phosphatase 64 U/L (41-126); Blood Urea Nitrogen 24.9 mg/dL (9.0-27.0); Calcium 8.3 mg/dL (8.7-10.3); Carbon Dioxide 28.1 mmol/L (21.6-31.8); Chloride 106 mmol/L (96-109); Chol/HDL Ratio 4.16 Ratio; Globulin 3.2 g/dL (1.6-3.3); Glucose 114 mg/dL (70-110); LDL Cholesterol,Calculated 129.6 mg/dL (0.0-131.0); Magnesium 2.6 mg/dL (1.5-2.4); Potassium 4.4 mmol/L (3.5-5.5); Sodium 144 mmol/L (135-145); Total Bilirubin <0.2 mg/dL (0.3-1.2); Total Protein 7.6 g/dL (6.2-8.2)
--- NOTE | 2023-10-09 11:42 | CT ---
EXAMINATION TYPE: CT TAVR Planning CT neck with IV contrast. CT chest abdomen pelvis with and without contrast. TAVR planning. DATE OF EXAM: 10/09/2023 CLINICAL INDICATION:Female, 88 years old with history of I35.0 NONRHEUMATIC AORTIC (VALVE) STENOSIS; tavr, [facility] CT DLP: 1588.7 mGycm Automated Exposure Control for Dose Reduction was Utilized. CONTRAST: CT scan of the chest, abdomen and pelvis is performed with IV Contrast, patient injected with 130 mL of Isovue 370. COMPARISON: Chest radiograph 09/18/2023. TECHNIQUE: Helical imaging obtained through the chest, abdomen and pelvis during arterial phase jeri jose alberto administration of radiographic contrast intravenously. FINDINGS: See report from [employer] regarding preprocedural planning CHEST: Lower Neck and Thyroid: No significant findings Lungs: Moderate centrilobular emphysema changes. No focal consolidation, pneumothorax or pleural effu douglas. No enlarging pulmonary nodules. Central Airway: No significant findings Pleura: No significant findings Pulmonary Arteries: No significant findings Heart and Pericardium: Heart is mildly enlarged for size. Mild coronary artery calcifications. Lymph Nodes: No significant findings Mediastinum & Esophagus: No significant findings Vasculature: Ascending thoracic aorta measures up to 31 mm near the aortic valve. There is severe aortic valve tony cifications. Major vessels of the aortic arch are patent. The descending thoracic aorta measures up t o 29 mm in width. There is moderate atherosclerosis of the arterial vasculature. The suprarenal abdom inal aorta demonstrates atherosclerotic plaque with 25% stenosis series 9 image 73-year-old the level of the celiac access posterior lateral to the right. The major vessels of the abdominal aorta pain. Mild infrarenal abdominal aorta ectasia up to 26 mm. T he common iliac and external iliac arteries are patent with scattered atherosclerotic calcifications. Atherosclerosis of the carotid bifurcations laterally with at least 25% stenosis. AV Calcification Severity: Severe ABDOMEN/PELVIS: Please note arterial phase of the imaging limits detailed evaluation of the solid abdominal organs. Liver: No significant findings Spleen: No significant findings Kidneys: Renal cortical cysts bilaterally. Adrenal Glands: No significant findings Pancreas: No significant findings Gallbladder: Multiple gallstones layering the gallbladder lumen. Bowel and Mesentery: No significant findings scattered colonic diverticula. Lymph Nodes: No significant findings Urinary Bladder: No significant findings Pelvic Organs: No significant findings Other: No significant findings Other Lines/Tubes/Devices/Hardware: None IMPRESSION: 1. Severe aortic valve leaflet calcifications. 2. No evidence for aneurysm. 3. No evidence for dissection. 4. Moderate soft atherosclerotic plaque at the level of the celiac axis which narrows the lumen of t he aorta approximately 25%. 5. Cholelithiasis. 6. Colonic diverticulosis. 7. Moderate emphysema.
[2023-10-09 11:46] LABS: NT-Pro-B-Type Natriuretic Pept 404 pg/mL (0-450)
[2023-10-09 11:54] LABS: Hepatitis A Antibody IgM Nonreactive (Nonreactive); Hepatitis B Core IgM Nonreactive (Nonreactive); Hepatitis B Surface Antigen Nonreactive (Nonreactive); Hepatitis C IgG Antibody Nonreactive (Nonreactive)
== END 2023-10-09 12:24 | disposition home or self-care (01) ==
LOC: LABWHC1 06:33
PROVIDERS: ATTEND Thoracic Surgery (Cardiothoracic Vascular Surgery)
DX: Z01.818 Encounter for other preprocedural examination (principal); I35.0 Nonrheumatic aortic (valve) stenosis; E87.8 Other disorders of electrolyte and fluid balance, not elsewhere classified; Z79.899 Other long term (current) drug therapy; E07.9 Disorder of thyroid, unspecified; Z79.01 Long term (current) use of anticoagulants; E11.9 Type 2 diabetes mellitus without complications; N28.9 Disorder of kidney and ureter, unspecified; E78.5 Hyperlipidemia, unspecified; I70.0 Atherosclerosis of aorta; K80.20 Calculus of gallbladder without cholecystitis without obstruction; J43.9 Emphysema, unspecified; K57.30 Diverticulosis of large intestine without perforation or abscess without bleeding; R35.0 Frequency of micturition; R58 Hemorrhage, not elsewhere classified
CPT/HCPCS: 83880; 80061; 80053; 80074; 84443; 83735; 85025; 85610; 85730; 83036; 71275; 74174; 36415; Q9967

== ENCOUNTER 2023-10-15 09:29 | Inpatient (IN) | payer MEDICARE ==
[~2023-10-15 09:29] MED LIST changes: -ALPRAZolam 0.25 MG TAB PO PRN; -ALPRAZolam 0.5 MG TAB PO PRN; -ASPIRIN 325 MG TAB PO STA; +CLEVIDIPINE BUTYRATE 25 MG in EMPTY BAG 1 BAG IV PRN; +ELECTROLYTE-A SOLUTION 1,000 ML with POTASSIUM CHLORIDE 100 MEQ, MAGNESIUM SULFATE 16 M... IV PRN; +INSULIN REGULAR 100 UNIT in SODIUM CHLORIDE 0.9% 100 ML IV PRN; -NITROGLYCERIN SL TABS 0.4 MG TAB SUBLINGUAL PRN; +NITROGLYCERIN-D5W PMX 25 MG/250 ML BTL IV PRN; +PROTAMINE SULFATE 250 MG in EMPTY BAG 1 BAG IV PRN; -SODIUM CHLORIDE 0.9% 1,000 ML in EMPTY BAG 1 BAG IV SCH; +SODIUM CHLORIDE 0.9% 500 ML 500 ML INTRAARTER PRN; +TRANEXAMIC ACID 2,000 MG in SODIUM CHLORIDE 0.9% 80 ML IV PRN
[2023-10-15] MEDS: SODIUM CHLORIDE 0.9% 1,000 ML IV ONE ×2 (10:09→13:23)
[2023-10-15 10:15] LABS: Glucose,Whole Blood 112 mg/dL (70-110)
[2023-10-15] MEDS: ATORVASTATIN 10 MG TAB PO ONE (10:16)
[2023-10-15] MEDS: METOPROLOL TARTRATE 25 MG TAB PO ONE (10:16)
[2023-10-15] MEDS: ASPIRIN 325 MG TAB PO ONE (10:16)
[2023-10-15] MEDS: CLOPIDOGREL 75 MG TAB PO ONE (10:16)
[2023-10-15 10:21] LABS: Anisocytosis Slight; Basophils % (A) 1 %; Eosinophils # (A) 0.2 k/uL (0-0.7); Eosinophils % (A) 3 %; HCT 30.5 % (34.0-46.0); HGB 9.7 gm/dL (11.4-16.0); Hypochromasia Marked; Lymphocytes # (A) 1.5 k/uL (1.0-4.8); Lymphocytes % (A) 26 %; MCH 26.3 pg (25.0-35.0); MCHC 31.9 g/dL (31.0-37.0); MCV 82.6 fL (80.0-100.0); Monocytes # (A) 0.2 k/uL (0-1.0); Monocytes % (A) 4 %; Neutrophils # (A) 3.8 k/uL (1.3-7.7); Neutrophils % (A) 64 %; Platelet Count 258 k/uL (150-450); RDW 16.2 % (11.5-15.5); WBC 5.8 k/uL (3.8-10.6)
[2023-10-15] MEDS ORDERED: MIDAZOLAM 2 MG/2 ML VIAL ONE (12:01)
[2023-10-15] MEDS ORDERED: LIDOCAINE 1% INJ 10MG/ML (20 ML MDV) ONE (12:01)
[2023-10-15] MEDS ORDERED: SUCCINYLCHOLINE CHLORIDE 200 MG/10 ML VIAL IV ONE (12:01)
[2023-10-15] MEDS ORDERED: NEOSTIGMINE 1 MG/ML 10 ML VIAL ONE (12:01)
[2023-10-15] MEDS ORDERED: PROTAMINE SULFATE 10 MG/ML 5 ML VIAL ONE (12:01)
[2023-10-15] MEDS ORDERED: PROPOFOL 10 MG/ML 20 ML VIAL IV ONE (12:01)
[2023-10-15] MEDS ORDERED: PHENYLEPHRINE-0.9% NACL SYG 1,000 MCG/10 ML SYRINGE ONE (12:01)
[2023-10-15] MEDS ORDERED: ROCURONIUM 10 MG/ML (5 ML VIAL) IV ONE (12:01)
[2023-10-15] MEDS ORDERED: HEPARIN SODIUM,PORCINE 5,000 UNIT/ML 1 ML VIAL ONE (12:01)
[2023-10-15] MEDS ORDERED: GLYCOPYRROLATE 0.2 MG/ML 2 ML VIAL ONE (12:01)
[2023-10-15] MEDS ORDERED: ePHEDrine 50 MG/ML 1 ML VIAL ONE (12:01)
[2023-10-15] MEDS ORDERED: fentaNYL (PF) 50 MCG/ML 2 ML AMP ONE (12:01)
[2023-10-15] MEDS ORDERED: hydrALAZINE HCL 20 MG/ML 1 ML VIAL ONE (12:01)
[2023-10-15] MEDS: IOPAMIDOL-370 100ML BTL INJ ONE (13:22)
--- NOTE | 2023-10-15 13:48 | P.ANPRN ---
Procedure Note - Anesthesia - ART Intraop Pre Bypass ART Intraop - Anesthesia Indication: transcatheter aortic valve replacement Date of Procedure: 10/15/23 Pre-operative Diagnosis: severe aortic stenosis Post-operative Diagnosis: severe aortic stenosis status post transcatheter aortic valve replacement Surgeon: Reji Cope Ejection Fraction: Normal Regional Wall Motion Abnormalities: None Left Ventricle Hypertrophy: No R. Ventricle Function: Normal Aortic Valve: severe aortic stenosis noted. Aortic valve calcified.peak gradient across the valve 48 mmHg and mean gradient of 24 mmHg. Valve area 0.45 cm Anatomy: Trileaflet Aortic Stenosis: Severe Aortic Regurgitation: Trace Mitral Stenosis: None Mitral Regurgitation: None Tricuspid Stenosis: None Tricuspid Regurgitation: Trace Pulmonic Stenosis: None Pulmonic Regurgitation: None R. Atrial Dilation: No R. Atrial PFO: No L. Atrial Dilation: No Aortic Dissection: No Aortic Calcification: None Plural Effusion: None - ART Intraop Post Bypass ART Intraop Post Bypass Procedure Performed: transcatheter aortic valve replacement Ejection Fraction: Normal Regional Wall Motion Abnormalities: None R. Ventricle Function: Normal Aortic Valve: prosthetic aortic valve in situ. Appears to be seated level. Trace paravalvular leak noted. Peak gradient across the valve 7 mmHg and mean gr adient is 2 mmHg. Mitral Valve: Unchanged Tricuspid: Unchanged Pulmonic: Unchanged Aortic Dissection: No
--- NOTE | 2023-10-15 13:56 | P.OP ---
Date of Procedure: 10/15/23 Preoperative Diagnosis: Symptomatic calcific aortic stenosis Postoperative Diagnosis: Same Procedure(s) Performed: Right transfemoral percutaneous transcatheter aortic valve replacement with 23 mm Monsivais CAROLINA 3 valve Implants: 23 mm Monsivais CAROLINA 3 valve Anesthesia: GETA Surgeon: Reji Cope (Cardiovascular surgeon) Electroplating Sales Representative #1: Romeo Paniagua (intake worker) Electroplating Sales Representative #2: Clemente Mosley (Menswear Salesperson) Estimated Blood Loss (ml): 20 IV fluids (ml): 1,000 Pathology: none sent Condition: stable Disposition: PACU Indications for Procedure: 88-year-old female with highly symptomatic aortic stenosis evaluated in high risk valve clinic and felt most appropriate for transcatheter valve replacement. She was high risk for surgical aortic valve. Indications for the procedure, risk versus benefits, possible complications were all reviewed and informed consent was obtained Operative Findings: Extremely tight aortic valve with very small opening, crossing the valve was quite difficult. Gradients were over 50 mean. 23 sapient valve was implanted without difficulty and there was only trivial paravalvular leak noted on the postoperative ART with the valve in good position and ventricular function good. Gradients were low. Successful groin closures were obtained and the patient was transferred to recovery in stable condition Description of Procedure: Patient was brought to the cardiac catheterization laboratory and placed supine on the table. General anesthesia was induced and ART probe was placed. Anterior torso and bilateral groins were sterilely prepped and draped. Right subclavian vein was accessed and a 7 Ukrainian peel-away sheath was placed. Through this a tined ventricular lead was placed in the apex of the ventricle. Introducer sheath was removed and it was secured to the skin with 2-0 silk loose suture ligatures. Pacing threshold was less than 1 V. Bilateral femoral arterial access was obtained under ultrasound guidance. On the right a 7 Ukrainian sheath was placed and 2 Perclose devices were then placed and an 8 Ukrainian sheath was placed. On the left a long 7 Ukrainian sheath was placed and it was advanced into the descending thoracic aorta. Through this a pigtail catheter was advanced into the right coronary sinus of Valsalva. 8 Ukrainian sheath on the right was upgraded to a 14 the E sheath over a stiff wire. Patient was systemically heparinized and ACT is maintained greater than 250 during the procedure. We crossed the aortic valve with a straight wire from the right groin. This was quite challenging and was assisted using the 3D imaging from the ART. Pigtail catheter was placed at the apex of the ventricle and transvalvular gradients were measured. Safari wire was placed at the apex of the ventricle. A 23 Monsivais CAROLINA 3 valve had been loaded on the back table and the delivery system was brought up onto the field. Was threaded over the safari wire through the E sheath and up into the vascular system. In the descending thoracic aorta, the balloon was pulled back into the valve prosthesis. The catheter was then curved and brought around the aortic arch and the valve positioned across the aortic valve. Pusher was pulled back appropriately. Valve was positioned accurately and deployed under rapid ventricular pacing. This proceeded uneventfully. ART demonstrated excellent position of the valve with trivial paravalvular leak. The delivery system was removed. Heparin was reversed with protamine. The sheath was removed and the 2 Perclose devices deployed with excellent hemostasis. Completion angiography was performed from the left and then the left sheath was removed. Good hemostasis was obtained in the left groin by Dr. Paniagua and the patient was awakened and transferred to the recovery area. Patient remained hemodynamically stable throughout the procedure. Pacing was not required for bradycardia.
[2023-10-15 14:29] LABS: Anisocytosis Slight; HCT 27.1 % (34.0-46.0); HGB 8.3 gm/dL (11.4-16.0); Hypochromasia Slight; MCH 24.7 pg (25.0-35.0); MCHC 30.5 g/dL (31.0-37.0); MCV 80.8 fL (80.0-100.0); Mean Platelet Volume 8.6; Platelet Count 230 k/uL (150-450); RBC 3.36 m/uL (3.80-5.40); RDW 16.7 % (11.5-15.5); WBC 5.4 k/uL (3.8-10.6)
[2023-10-15 14:35] LABS: Glucose,Whole Blood 113 mg/dL (70-110)
[2023-10-15 14:49] LABS: African American GFR (CKD) 68 (>60 ml/min/1.73 sqM); Anion Gap 7 mmol/L; Blood Urea Nitrogen 24 mg/dL (7-17); Calcium 7.3 mg/dL (8.4-10.2); Carbon Dioxide 23 mmol/L (22-30); Chloride 110 mmol/L (98-107); Glucose 110 mg/dL (74-99); Non-African American GFR(CKD) 59 (>60 ml/min/1.73 sqM); Potassium 3.9 mmol/L (3.5-5.1); Sodium 140 mmol/L (137-145)
[2023-10-15] MEDS: MIDAZOLAM 2 MG/2 ML VIAL IVP ONE (14:49)
--- NOTE | 2023-10-15 14:53 | XR ---
EXAMINATION TYPE: XR chest 1V portable DATE OF EXAM: 10/15/2023 COMPARISON: 09/18/2023 HISTORY: Post CABG TECHNIQUE: Single frontal view of the chest is obtained. FINDINGS: Postsurgical changes compatible with TAVR. r. Right-sided chest bleed noted. Coarsened interstitium likely reflects chronic interstitial lung di sease. Underlying emphysema with no pleural effusion or pneumothorax. Degenerative changes spine. Dif fuse osteopenia. No pneumothorax. IMPRESSION: 1. Postsurgical changes compatible with TAVR. 2. COPD correlate for chronic interstitial lung disease.
[2023-10-15 15:19] LABS: ABG PH 7.51 (7.35-7.45); Allen Test Performed? Yes
[2023-10-15 15:20] LABS: ABG Base Excess 1.6 mmol/L; ABG HCO3 25 mmol/L (21-25); ABG PCO2 31 mmHg (35-45); ABG PO2 150 mmHg (83-108); ABG TCO2 26 mmol/L (19-24)
--- NOTE | 2023-10-15 16:23 | P.PN ---
Subjective Transcatheter Aoritc Valve Replacement Operative report PROCEDURE PERFORMED: 1. Percutaneous Aortic Valve Implantation using a 23mm Monsivais Rex S3 valve. 2. Transesophageal echocardiography (performed by anesthesia) 3. Ultrasound guided access and repair of right femoral artery access site by Perclose closure device. 4. Placement of temporary pacemaker wire. 5. Aortic root angiography INDICATIONS: 1. 88 year-old with a history of severe symptomatic aortic valve stenosis. PERFORMING PHYSICIANS: 1. Romeo Paniagua, Interventional Cardiology 2. Reji Cope MD, Cardiothoracic Surgeon. SEDATION: General anesthesia provided by anesthesia, see separate note APPROACH: Right femoral artery via percutaneous approach PROCEDURE DESCRIPTION: The patient was discussed at valve clinic with multidisciplinary approach with cardiothoracic surgeon as well as manager park and thought better treated with TAVR. Risks, benefits, and alternatives of the procedure had been explained to the patient who understood the risks and agreed to proceed. After consents were obtained, patient was brought to the transcatheter aortic valve implantation room in the cardiac laborer egg producing farm and general anesthesia was provided by the anesthesiologist (see separate report). Once full body sterile prep was performed, right subclavian venous access was obtained and a temporary pacemaker was screwed in, performed by cardiothoracic surgery. Pacing threshholds were checked and deemed appropriate. Next the left femoral artery was accessed using a modified Seldinger technique, ultrasound guidance and micropuncture technique. A 6 Icelandic Rabi sheath was placed in the left femoral artery. Next, a 6-Icelandic pigtail catheter was advanced into the aorta and positioned in the aortic root, aortic root angiography was performed to determine optimal deployment angle. The right femoral artery was accessed using modified Seldinger technique, micropuncture technique and under direct ultrasound guidance. Femoral angiogram was done showing access in the common femoral artery and a 6Fr sheath was placed. Next preclose technique was performed using 2 Perclose. Next a 0.035 Safari wire was placed in the Aorta via a pigtail catheter. Over that the arteriotomy was serially dilated and a 14 Fr E sheath was placed. Next a 6F- AL1 catheter was advanced over a wire to the aortic root. AL1 was not optimal and therefore this necessitated changing to a AL2. A straight wire was advanced through the catheter and used to cross the severely stenotic valve. The AL2 was then exchanged for a 6Fr pigtail catheter and pressure measurements were obtained. The 0.035 Safari wire was then positioned in the apex. Next a 23 mm Rex S3 +1ml in balloon was advanced. The valve was then positioned across the aortic valve and confirmed with aortic root angiography. The valve was then deployed in proper position using slow deployment balloon inflation and with rapid pacing. The delivery system was withdrawn back into the arch and an aortic root injection in conjunction with ART demonstrated a satisfactory result. There was mild para valvular leak. There was no evidence of any other significant abnormalities. The preclose Perclose was then deployed in the right femoral artery and hemostasis was achieved. The pigtail was then advanced to the level of the iliac bifurcation via the left femoral access. Femoral angiogram was performed that showed no contrast leak. The left femoral angiogram demonstrated an arteriotomy in the common femoral artery and this was repaired using a 6F angioseal device with complete hemostasis. The temporary venous pacemaker was sutured in place. The patient was then transported to the post op holding area in hemodynamically stable condition, requiring no pressor support. COMPLICATIONS: None CONCLUSION: 1. Implantaion of 23 mm Rex S3 transcatheter aortic valve via right femoral approach under ART and fluoro guidance with trace cornelio-valvular aortic regurgitation. 2. Placement of temporary pacemaker wire 3. Aortic Root Aortogram. RECOMMENDATIONS: The patient will be monitored for hemodynamic and electrical stability. Objective - Vital Signs Vital signs: Vital Signs Temp 97.0 F L 10/15/23 13:54 Pulse 60 10/15/23 15:54 Resp 16 10/15/23 15:54 BP 126/60 10/15/23 15:54 Pulse Ox 95 10/15/23 15:54 FiO2 Intake & Output 10/14/23 10/15/23 10/15/23 18:59 06:59 18:59 Intake Total 1650 Output Total 550 Balance 1100 Weight 60.781 kg 60.1 kg Intake: IV 1650 Output: Urine 550 - Labs CBC & Chem 7: 10/15/23 14:10 10/15/23 14:10 Labs: Abnormal Lab Results - Last 24 Hours (Table) 10/15/23 10/15/23 10/15/23 Range/Units 10:00 10:03 14:10 RBC 3.70 L (3.80-5.40) m/uL Hgb 9.7 L (11.4-16.0) gm/dL Hct 30.5 L (34.0-46.0) % MCH (25.0-35.0) pg MCHC (31.0-37.0) g/dL RDW 16.2 H (11.5-15.5) % ABG pH (7.35-7.45) ABG pCO2 (35-45) mmHg ABG pO2 (83-108) mmHg ABG Total CO2 (19-24) mmol/L ABG O2 Saturation (94-97) % Chloride 110 H (98-107) mmol/L BUN 24 H (7-17) mg/dL Glucose 110 H (74-99) mg/dL POC Glucose (mg/dL) 112 H (70-110) mg/dL Calcium 7.3 L (8.4-10.2) mg/dL 10/15/23 10/15/23 10/15/23 Range/Units 14:10 14:25 14:34 RBC 3.36 L (3.80-5.40) m/uL Hgb 8.3 L (11.4-16.0) gm/dL Hct 27.1 L (34.0-46.0) % MCH 24.7 L (25.0-35.0) pg MCHC 30.5 L (31.0-37.0) g/dL RDW 16.7 H (11.5-15.5) % ABG pH 7.51 H (7.35-7.45) ABG pCO2 31 L (35-45) mmHg ABG pO2 150 H (83-108) mmHg ABG Total CO2 26 H (19-24) mmol/L ABG O2 Saturation 99.0 H (94-97) % Chloride (98-107) mmol/L BUN (7-17) mg/dL Glucose (74-99) mg/dL POC Glucose (mg/dL) 113 H (70-110) mg/dL Calcium (8.4-10.2) mg/dL
[2023-10-15] MEDS: LACTATED RINGERS 1,000 ML IV SCH ×2 (16:48→18:47)
[2023-10-15] MEDS ORDERED: ONDANSETRON 4 MG/2 ML VIAL IVP PRN (17:27)
[2023-10-15] MEDS ORDERED: IPRATROPIUM-ALBUTEROL 3 ML NEB INHALATION PRN (17:27)
[2023-10-15] MEDS ORDERED: MECLIZINE 25 MG TAB PO PRN (17:27)
[2023-10-15] MEDS: SENNOSIDES-DOCUSATE SODIUM 1 EACH TAB PO SCH (20:30)
[2023-10-15] MEDS: ACETAMINOPHEN TAB 325 MG TAB PO PRN (22:54)
[2023-10-15] MEDS: HEPARIN SODIUM,PORCINE 5,000 UNIT/ML 1 ML VIAL SQ SCH (22:55)
[2023-10-16] MEDS: LEVOTHYROXINE 112 MCG TAB PO SCH (06:45)
--- NOTE | 2023-10-16 08:08 | XR ---
EXAMINATION TYPE: XR chest 1V portable DATE OF EXAM: 10/16/2023 COMPARISON: 10/15/2023 HISTORY: Postop TECHNIQUE: Single frontal view of the chest is obtained. FINDINGS: There is no focal air space opacity, pleural effusion, or pneumothorax seen. Heart is enla rged. There is arthropathy of the shoulders and underlying emphysema. Ectasia of the aorta with ather osclerotic changes. Postsurgical changes compatible with TAVR. The osseous structures are intact. Coarsening of interstitium likely reflects a degree of underlying chronic interstitial lung disease. IMPRESSION: No acute process. Correlate for COPD.
[2023-10-16] MEDS: ATORVASTATIN 10 MG TAB PO SCH (08:38)
[2023-10-16] MEDS: PANTOPRAZOLE 40 MG TABLET PO SCH (08:38)
[2023-10-16] MEDS: ASPIRIN 81 MG PO SCH (08:38)
[2023-10-16] MEDS: amLODIPine 5 MG TAB PO SCH (08:39)
[2023-10-16] MEDS: METOPROLOL TARTRATE 12.5 MG TAB PO SCH (08:39)
[2023-10-16] MEDS: SERTRALINE 25 MG TAB PO SCH (08:39)
[2023-10-16] MEDS ORDERED: bisacodyL 10 MG SUPP RECTAL PRN (09:00)
[2023-10-16] MEDS ORDERED: MAGNESIUM HYDROXIDE 2,400 MG/30 ML CUP PO PRN (09:00)
[2023-10-16 09:54] VITALS: RESP 20
[2023-10-16 10:19] LABS: Anisocytosis Slight; Basophils % (A) 0 %; Eosinophils # (A) 0.1 k/uL (0-0.7); Eosinophils % (A) 2 %; HCT 28.8 % (34.0-46.0); HGB 8.6 gm/dL (11.4-16.0); Hypochromasia Marked; Lymphocytes # (A) 0.6 k/uL (1.0-4.8); Lymphocytes % (A) 11 %; MCHC 29.8 g/dL (31.0-37.0); MCV 83.8 fL (80.0-100.0); Mean Platelet Volume 8.3; Monocytes # (A) 0.3 k/uL (0-1.0); Monocytes % (A) 6 %; Neutrophils # (A) 4.7 k/uL (1.3-7.7); Neutrophils % (A) 80 %; Platelet Count 204 k/uL (150-450); RBC 3.44 m/uL (3.80-5.40); RDW 16.6 % (11.5-15.5); WBC 5.9 k/uL (3.8-10.6)
[2023-10-16 10:35] LABS: ALT 11 U/L (4-34); AST 29 U/L (14-36); African American GFR (CKD) 61 (>60 ml/min/1.73 sqM); Albumin 3.7 g/dL (3.5-5.0); Alkaline Phosphatase 58 U/L (38-126); Anion Gap 8 mmol/L; Blood Urea Nitrogen 21 mg/dL (7-17); Calcium 7.5 mg/dL (8.4-10.2); Carbon Dioxide 25 mmol/L (22-30); Chloride 107 mmol/L (98-107); Glucose 120 mg/dL (74-99); Magnesium 2.2 mg/dL (1.6-2.3); Non-African American GFR(CKD) 53 (>60 ml/min/1.73 sqM); Potassium 3.4 mmol/L (3.5-5.1); Sodium 140 mmol/L (137-145); Total Bilirubin 0.3 mg/dL (0.2-1.3); Total Protein 6.6 g/dL (6.3-8.2)
[2023-10-16 11:44] LABS: Ionized Calcium 4.3 mg/dL (4.5-5.3)
[2023-10-16 12:10] VITALS: BP 126/57; PULSE 60; TEMP 98
--- NOTE | 2023-10-16 12:39 | CA ---
Transthoracic Echo Report Name: Minnie Juan Age: 88 Gender: F : 1935 Exam Date: 10/16/2023 07:47 Exam Location: [facility] Ht (in): 64 Wt (lb): 132 Ordering Physician: Cassi Barrera Attending/Referring Phys: [id number], Bruce Sprinkler Truck Driver Jeni Garcia RDCS Procedure CPT: Indications: post TAVR Cardiac Hx: Technical Quality: Good Contrast 1: Total Dose (mL): Contrast 2: Total Dose (mL): MEASUREMENTS (Male / Female) Normal Values 2D ECHO LV Diastolic Diameter PLAX 4.9 cm 4.2 - 5.9 / 3.9 - 5.3 cm LV Systolic Diameter PLAX 2.9 cm IVS Diastolic Thickness 1.1 cm 0.6 - 1.0 / 0.6 - 0.9 cm LVPW Diastolic Thickness 1.2 cm 0.6 - 1.0 / 0.6 - 0.9 cm LV Relative Wall Thickness 0.5 RV Internal Dim ED PLAX 3.1 cm LVOT Diameter 2.1 cm LA Systolic Diameter LX 3.8 cm 3.0 - 4.0 / 2.7 - 3.8 cm LV Diastolic Volume MOD BP 58.4 cm??? 67 - 155 / 56 - 104 cm??? LV Systolic Volume MOD BP 21.9 cm??? 22 - 58 / 19 - 49 cm??? LV Ejection Fraction MOD BP 62.5 % >= 55 % LV Cardiac Index MOD BP 1438.5 cm???/min???m??? LV Diastolic Volume MOD 4C 47.8 cm??? LV Systolic Volume MOD 4C 17.4 cm??? LV Ejection Fraction MOD 4C 63.6 % LV Cardiac Index MOD 4C 1198.7 cm???/min???m??? LV Diastolic Length 4C 7.2 cm LV Systolic Length 4C 5.3 cm LV Diastolic Volume MOD 2C 71.6 cm??? LV Systolic Volume MOD 2C 27.9 cm??? LV Ejection Fraction MOD 2C 61.0 % LV Cardiac Index MOD 2C 1720.1 cm???/min???m??? LV Diastolic Length 2C 7.1 cm LV Systolic Length 2C 5.2 cm LA Volume 71.4 cm??? 18 - 58 / 22 - 52 cm??? LA Volume Index 43.3 cm???/m??? 16 - 28 cm???/m??? Aorta at Sinotubular Diameter 2.1 cm DOPPLER AV Peak Velocity 145.8 cm/s AV Peak Gradient 8.5 mmHg AV Mean Velocity 95.3 cm/s AV Mean Gradient 4.3 mmHg AV Velocity Time Integral 35.2 cm AI Peak Velocity 432.7 cm/s AI Peak Gradient 74.9 mmHg AI Pressure Half Time 682.7 ms LVOT Peak Velocity 119.5 cm/s LVOT Peak Gradient 5.7 mmHg LVOT Velocity Time Integral 33.5 cm LVOT Stroke Volume 118.0 cm??? LVOT Stroke Volume Index 72.0 ml/m??? LVOT Cardiac Index 4649.8 cm???/min???m??? AV Area Cont Eq vti 3.4 cm??? AV Area Cont Eq pk 2.9 cm??? MV Area PHT 2.8 cm??? Mitral E Point Velocity 95.5 cm/s Mitral A Point Velocity 112.8 cm/s Mitral E to A Ratio 0.8 MV Deceleration Time 274.0 ms TR Peak Velocity 238.2 cm/s TR Peak Gradient 22.7 mmHg Right Ventricular Systolic Press 27.5 mmHg FINDINGS Left Ventricle Left ventricular ejection fraction is estimated at 60-65 %. Left ventricular cavity size normal. Mildly increased septal wall thickness. Mildly increased posterior wall thickness. No obvious regional wall motion abnormalities. Right Ventricle Normal right ventricular size. Right ventricular systolic pressure within normal limits. Right Atrium Normal right atrial size. Left Atrium Moderately increased left atrial volume. Mildly increased left atrial area. Mitral Valve Mitral valve thickened. Mild mitral annular calcification. Trace to mild mitral regurgitation. Aortic Valve Normally functioning bioprosthetic aortic valve without stenosis with a peak velocity of 1.46 m/s, peak gradient 9 mmHg, mean gradient 4 mmHg, and estimated aortic valve area of 2.9 cm???. Mild aortic regurgitation. Mild paravalvular aortic regurgitation. Tricuspid Valve Structurally normal tricuspid valve. No tricuspid stenosisn or prolapse. Mild tricuspid regurgitation. Pulmonic Valve Structurally normal pulmonic valve. No pulmonic regurgitation. Pericardium No pericardial effusion. No pleural effusion. Aorta Normal size aortic root and proximal ascending aorta. CONCLUSIONS Normal LV systolic function Normally functioning transcatheter aortic valve with a mean gradient of 4 mmHg and mild perivalvular leak No evidence of any pericardial effusion Previewed by: Dr. Obinna Santana MD (Electronically Signed) Final Date: 16 Oct 2023 12:38
--- NOTE | 2023-10-16 12:53 | P.DS ---
Providers Date of admission: 10/15/23 09:29 Expected date of discharge: 10/16/23 Attending physician: Reji Cope Consults: 10/14/23 09:21 Consult to Anesthesia Routine Consulting Provider: Anesthesia,Services Consult Reason/Comments: Cardiac Surgery Pre-Op 10/15/23 13:16 Consult Physician Routine Consulting Provider: Reji Cope Consult Reason/Comments: tavr Do you want consulting provider notified?: Already Contacted Primary care physician: Mariza Bradley Hospital Course: MEDICAL HISTORY: 1. Calcified aortic valve with severe symptomatic aortic valve stenosis, NYHA II 2. Hypertension 3. Hyperlipidemia 4. 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 Previous heavy tobacco dependence with COPD 6. Known brain aneurysm in the [place] 7. Recent GI bleed with chronic anemia 8. Frequent falls at home PROCEDURE: 1. Percutaneous aortic valve implantation using a 23 mm Monsivais [place] 3 valve under ART and fluoroscopy guidance 2. Transesophageal echocardiography performed by anesthesia 3. Ultrasound-guided access and repair of right femoral artery access site by Perclose closure device 4. Placement of temporary pacemaker wire 5. Aortic root angiography HISTORY OF PRESENT ILLNESS: This is a 88-year-old female who follows on an outpatient basis with Dr. Bradley for primary care and Dr. Paniagua for cardiology. She has a known history of severe aortic stenosis and has been symptomatic with increased exertional dyspnea as well as extreme fatigue. She had been referred to structural heart clinic for evaluation for transcatheter aortic valve replacement after heart catheterization and transesophageal echocardiogram were completed. Echocardiography demonstrated normal systolic function with EF 55%, aortic valve area 0.7 cm with a peak/mean gradient 93/54 mmHg. Heart catheterization showed mild to moderate LAD and circumflex coronary artery disease, felt to be best treated medically. After workup was completed STS risk score was calculated along with incremental risk and the patient was felt to be high risk for surgical aortic valve replacement, therefore transcatheter aortic valve replacement was recommended. The usual course of TAVR was discussed in detail the patient, risks and benefits were reviewed, shared decision making between cardiology, surgery, and the patient/family took place, and the patient consented to proceed with the procedure. HOSPITAL COURSE: The patient was brought to the hospital on 10/15/23, was taken to the extended stay area, prepared in the usual fashion, and subsequently taken to the cardiac catheterization laboratory where Dr. Paniagua and Dr. Cope completed TAVR procedure under general anesthesia with fluoroscopy and ART. The valve was deployed under rapid ventricular pacing and proceeded without event. At the end of the procedure there was mean gradient 2 mmHg, hemodynamics were felt to be acceptable, and there was trace perivalvular leak. Upon completion of the procedure the patient was extubated and was transferred to the cardiac stepdown unit where she was recovered and monitored hemodynamically. Her oxygen was titrated down, she was tolerating oral diet, her pain was controlled, follow-up TTE demonstrated normal left ventricular systolic function with EF 55- 60%, mean gradient 4 mmHg, and mild aortic insufficiency and paravalvular leak, and she was ready to be discharged to home on postoperative day #1. She received written and verbal instruction regarding hier medications, activity restrictions, signs and symptoms requiring physician notification, and follow-up appointments. Patient Condition at Discharge: Stable Plan - Discharge Summary Discharge Rx Participant: Yes New Discharge Prescriptions: New Sennosides-Docusate Sodium [Senokot-S] 2 each PO HS PRN tab PRN Reason: Constipation Aspirin 81 mg PO DAILY #30 tab Metoprolol Tartrate [Lopressor] 12.5 mg PO BID #60 tab Continue Sertraline [Zoloft] 25 mg PO DAILY Meclizine [Antivert] 25 mg PO TID PRN PRN Reason: Vertigo Levothyroxine Sodium [Synthroid] 112 mcg PO DAILY Cyanocobalamin [Vitamin B-12 Injection] 1,000 mcg SQ QMONTHLY Acetaminophen Tab [Tylenol] 650 mg PO Q6HR PRN tab PRN Reason: Mild Pain Or Fever > 100.5 Simvastatin [Zocor] 5 mg PO DAILY amLODIPine [Norvasc] 5 mg PO DAILY Pantoprazole [Protonix] 40 mg PO DAILY #30 tab Discharge Medication List Cyanocobalamin [Vitamin B-12 Injection] 1,000 mcg SQ QMONTHLY 09/18/23 [History] Levothyroxine Sodium [Synthroid] 112 mcg PO DAILY 09/18/23 [History] Meclizine [Antivert] 25 mg PO TID PRN 09/18/23 [History] Sertraline [Zoloft] 25 mg PO DAILY 09/18/23 [History] Simvastatin [Zocor] 5 mg PO DAILY 09/18/23 [History] amLODIPine [Norvasc] 5 mg PO DAILY 09/18/23 [History] Acetaminophen Tab [Tylenol] 650 mg PO Q6HR PRN tab 09/23/23 [Rx] Pantoprazole [Protonix] 40 mg PO DAILY #30 tab 09/23/23 [Rx] Aspirin 81 mg PO DAILY #30 tab 10/16/23 [Rx] Metoprolol Tartrate [Lopressor] 12.5 mg PO BID #60 tab 10/16/23 [Rx] Sennosides-Docusate Sodium [Senokot-S] 2 each PO HS PRN tab 10/16/23 [Rx] Follow up Appointment(s)/Referral(s): Romeo Paniagua DO [STAFF PHYSICIAN] - 10/24/23 3:45 pm (Your appointment 10/24/23 is for a groin check. You also have a 30 day TAVR follow up and echo with Dr. Paniagua 12/19/23 @ 7:30 am, and a 1 year TAVR follow up and echo with Dr. Paniagua 09/14/24 @ 1:45 pm) Mariza Bradley DO [Primary Care Provider] - As Needed Clinic,Structural Heart [NON-STAFF] - 12/19/23 8:30 am (Your appointment 12/19/23 is part of 30 day post TAVR follow up, you also have a 1 year follow up in the Valve clinic 09/14/24 @ 1:15 pm) Ambulatory/Diagnostic Orders: Basic Metabolic Panel [LAB.AMB] Location: None Selected Basic Metabolic Panel [LAB.AMB] Location: None Selected Complete Blood Count w/diff [LAB.AMB] Location: None Selected Complete Blood Count w/diff [LAB.AMB] Location: None Selected Activity/Diet/Wound Care/Special Instructions: DISCHARGE INSTRUCTIONS: 1. No driving for 1 week, or until physician gives their ok. 2. No lifting, pushing, or pulling more than 5-10 pounds for 1 week. 3. Hold both groins when you cough or sneeze for the next 2 weeks. Bruising is common, but report increased swelling, pain or fever >101F 4. Shower daily. No pool, hot tub, or bathtub for 1 week 5. No powders, lotions, ointments on incisions. 6. No straining, including for bowel movements. Use stool softner if necessary 7. Stairs are not an issue. Go slowly, using handrail and take 1 step at a time. Ambulate several times daily 8. Continue pain control per as needed orders. 9. Take only the medications listed on your discharge form 10. Eat low salt (limited to 2 grams or 2000 milligrams) daily, avoid adding salt, avoid canned/processed foods 11. Take your weight daily in the morning and record, bring with you to your follow up appointments 12. Keep all follow up appointments. You will need a valve clinic appointment at 30 days and 1 year post procedure for follow up 13. You have been referred to and are expected to begin Cardiac Rehab in approximately 4 weeks. For any questions or concerns please call your valve coordinators: Cassi or Jimmy @ Discharge Disposition: HOME SELF-CARE
[2023-10-16 13:40] VITALS: BMI 23.3
[2023-11-08] MEDS ORDERED: CYANOCOBALAMIN 1,000 MCG/ML 1 ML VIAL SQ SCH (09:00)
== END 2023-10-16 15:03 | disposition home or self-care (01) | DRG 267 ==
LOC: 2ORMAIN 09:29 → 3SCARD 15:40
PROVIDERS: ADMIT Internal Medicine; ATTEND Thoracic Surgery (Cardiothoracic Vascular Surgery)
PROC: B3101ZZ Fluoroscopy of Thoracic Aorta using Low Osmolar Contrast (ICD-10-PCS; 2023-10-15)
PROC: 5A1223Z Performance of Cardiac Pacing, Continuous (ICD-10-PCS; 2023-10-15)
PROC: B3101ZZ Fluoroscopy of Thoracic Aorta using Low Osmolar Contrast (ICD-10-PCS; 2023-10-15)
PROC: 02RF38Z Replacement of Aortic Valve with Zooplastic Tissue, Percutaneous Approach (ICD-10-PCS; principal; 2023-10-15 12:30)
PROC: B24BZZ4 Ultrasonography of Heart with Aorta, Transesophageal (ICD-10-PCS; 2023-10-15 12:30)
DX: I35.0 Nonrheumatic aortic (valve) stenosis (principal); Z00.6 Encounter for examination for normal comparison and control in clinical research program; I35.8 Other nonrheumatic aortic valve disorders; I67.1 Cerebral aneurysm, nonruptured; J44.9 Chronic obstructive pulmonary disease, unspecified; I10 Essential (primary) hypertension; E89.0 Postprocedural hypothyroidism; D50.0 Iron deficiency anemia secondary to blood loss (chronic); I25.10 Atherosclerotic heart disease of native coronary artery without angina pectoris; R29.6 Repeated falls; E78.5 Hyperlipidemia, unspecified; Z87.19 Personal history of other diseases of the digestive system; Z91.81 History of falling; Z87.891 Personal history of nicotine dependence; Z79.899 Other long term (current) drug therapy; Z79.890 Hormone replacement therapy
CPT/HCPCS: 33210; 33361; 71045; 80048; 80053; 82330; 82805; 83735; 85025; 85027; 86850; 86900; 86901; 93306; 93312; 93320; 93325

== ENCOUNTER → 2023-10-28 | Outpatient (CLI) | payer MEDICARE ==
[2023-10-28 15:50] LABS: HCT 23.2 % (37.2-46.3); HGB 6.6 g/dL (12.0-15.0); MCHC 28.4 g/dL (32.0-37.0); MCV 87.9 FL (80.0-97.0); Mean Platelet Volume 9.8 FL (9.5-12.2); NRBC Per 100 WBC 0 X 10*3/uL (0.00-0.01); Platelet Count 327 X 10*3/uL (140-440); RBC 2.64 X 10*6/uL (4.10-5.20); RDW 17.7 % (11.5-14.5); WBC 7.02 X 10*3/uL (4.50-10.00)
[2023-10-28 15:53] LABS: Blood Urea Nitrogen 29.9 mg/dL (9.0-27.0); Calcium 7.2 mg/dL (8.7-10.3); Carbon Dioxide 22.6 mmol/L (21.6-31.8); Chloride 108 mmol/L (96-109); Glucose 129 mg/dL (70-110); Potassium 4.3 mmol/L (3.5-5.5); Sodium 143 mmol/L (135-145)
== END | disposition home or self-care (01) ==
LOC: LABWHC1 11:40
PROVIDERS: ATTEND Internal Medicine Interventional Cardiology
DX: D64.9 Anemia, unspecified (principal)
CPT/HCPCS: 36415; 80048; 85027

== ENCOUNTER 2023-10-29 10:25 | Observation (INO) | payer MEDICARE ==
[2023-10-29 10:59] LABS: Anisocytosis Slight; Basophils % (A) 1 %; Eosinophils # (A) 0.3 k/uL (0-0.7); Eosinophils % (A) 6 %; HCT 23.4 % (34.0-46.0); Hypochromasia Marked; Lymphocytes # (A) 0.9 k/uL (1.0-4.8); Lymphocytes % (A) 14 %; MCH 25.3 pg (25.0-35.0); MCHC 29.8 g/dL (31.0-37.0); MCV 85.2 fL (80.0-100.0); Mean Platelet Volume 7.8; Monocytes # (A) 0.2 k/uL (0-1.0); Monocytes % (A) 4 %; Neutrophils # (A) 4.6 k/uL (1.3-7.7); Neutrophils % (A) 75 %; Platelet Count 358 k/uL (150-450); RBC 2.75 m/uL (3.80-5.40); RDW 17.6 % (11.5-15.5); WBC 6.1 k/uL (3.8-10.6)
[2023-10-29 11:24] LABS: Prothrombin Time 10.6 sec (10.0-12.5)
[2023-10-29 11:26] LABS: ALT 9 U/L (4-34); AST 21 U/L (14-36); African American GFR (CKD) 61 (>60 ml/min/1.73 sqM); Albumin 3.5 g/dL (3.5-5.0); Alkaline Phosphatase 51 U/L (38-126); Anion Gap 6 mmol/L; Blood Urea Nitrogen 28 mg/dL (7-17); Calcium 6.9 mg/dL (8.4-10.2); Carbon Dioxide 28 mmol/L (22-30); Chloride 110 mmol/L (98-107); Glucose 135 mg/dL (74-99); Non-African American GFR(CKD) 53 (>60 ml/min/1.73 sqM); Potassium 4.5 mmol/L (3.5-5.1); Sodium 144 mmol/L (137-145); Total Bilirubin 0.3 mg/dL (0.2-1.3); Total Protein 6.5 g/dL (6.3-8.2)
--- NOTE | 2023-10-29 12:02 | ED ---
General Adult HPI - General Chief complaint: Recheck/Abnormal Lab/Rx Stated complaint: Abn Labs Time Seen by Provider: 10/29/23 11:50 Source: patient, family, RN notes reviewed, old records reviewed Mode of arrival: ambulatory Limitations: no limitations - History of Present Illness Initial comments: Patient is an 88-year-old female present to the emergency department with concerns for anemia. Patient had blood work done yesterday. Patient was called today and was told her hemoglobin was low and to come to the emergency department. Patient does have history of similar symptoms previously. Patient has been off of her Protonix for the past 3 days. Prescription had run out. No bleeding or rectal bleeding. Patient does have some exertional dyspnea and fatigue however that is chronic and not new. Patient did have heart valve replaced a couple weeks ago endovascularly. - Related Data Home Medications Medication Instructions Recorded Confirmed Cyanocobalamin [Vitamin B-12 1,000 mcg SQ QMONTHLY 09/18/23 10/29/23 Injection] Levothyroxine Sodium [Synthroid] 112 mcg PO DAILY 09/18/23 10/29/23 Meclizine [Antivert] 25 mg PO TID PRN 09/18/23 10/29/23 Sertraline [Zoloft] 25 mg PO DAILY 09/18/23 10/29/23 Simvastatin [Zocor] 5 mg PO DAILY 09/18/23 10/29/23 amLODIPine [Norvasc] 5 mg PO DAILY 09/18/23 10/29/23 Sennosides-Docusate Sodium 2 tab PO HS PRN 10/29/23 10/29/23 [Senokot-S] Previous Rx's Medication Instructions Recorded Acetaminophen Tab [Tylenol] 650 mg PO Q6HR PRN tab 09/23/23 Pantoprazole [Protonix] 40 mg PO DAILY #30 tab 09/23/23 Aspirin 81 mg PO DAILY #30 tab 10/16/23 Metoprolol Tartrate [Lopressor] 12.5 mg PO BID #60 tab 10/16/23 Allergies Allergy/AdvReac Type Severity Reaction Status Date / Time No Known Allergies Allergy Verified 10/29/23 12:39 Review of Systems ROS Statement: Those systems with pertinent positive or pertinent negative responses have been documented in the HPI. ROS Other: All systems not noted in ROS Statement are negative. Constitutional: Denies: fever Eyes: Denies: eye pain ENT: Denies: ear pain Respiratory: Reports: as per HPI. 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, SOB w/exertion, heart valve problem History of Any Multi-Drug Resistant Organisms: None Reported Past Surgical History: Heart Catheterization, Hysterectomy, Tonsillectomy Additional Past Surgical History / Comment(s): partial thyroidectomy, EGD, colonoscopy Past Anesthesia/Blood Transfusion Reactions: No Reported Reaction Past Psychological History: No Psychological Hx Reported Smoking Status: Former smoker - Past Family History Mother Family Medical History: No Reported History General Exam Limitations: no limitations General appearance: alert, in no apparent distress Head exam: Present: normocephalic Eye exam: Present: other (Pale conjunctiva) Neck exam: Present: normal inspection Respiratory exam: Present: normal lung sounds bilaterally Cardiovascular Exam: Present: regular rate, normal rhythm GI/Abdominal exam: Present: soft. Absent: tenderness Rectal exam: Present: normal inspection. Absent: black stool, bloody stool Extremities exam: Present: normal inspection Neurological exam: Present: alert Psychiatric exam: Present: normal affect, normal mood Skin exam: Present: pallor Course Vital Signs 10/29/23 10/29/23 10:31 12:03 Temperature 98.5 F Pulse Rate 68 63 Respiratory 16 18 Rate Blood Pressure 125/47 129/58 O2 Sat by Pulse 97 94 L Oximetry Medical Decision Making - Medical Decision Making Was pt. sent in by a medical professional or institution (, PA, DIRECTOR CLIENT SERVICES, urgent care, hospital, or care home...) When possible be specific @ -No Did you speak to anyone other than the patient for history (EMS, parent, family, police, friend...)? What history was obtained from this source @ -Family is present and helps provide history including patient's symptoms Did you review nursing and triage notes (agree or disagree)? Why? @ -I reviewed and agree with nursing and triage notes Were old charts reviewed (outside hosp., previous admission, EMS record, old EKG, old radiological studies, urgent care reports/EKG's, care home records)? Report findings @ -Previous scope reviewed showing gastritis and AVM with cauterization Differential Diagnosis (chest pain, altered mental status, abdominal pain women, abdominal pain men, vaginal bleeding, weakness, fever, dyspnea, syncope, headache, dizziness, GI bleed, back pain, seizure, CVA, palpatations, mental health, musculoskeletal)? @ -Differential Weakness: Hypoglycemia, shock, sepsis, hyponatremia, anemia, infection, NM, ETOH, adverse medicine reaction, overdose, stroke, this is not meant to be an all-inclusive list. GI bleed differential GI bleed EKG interpreted by me (3pts min.). @ -As above X-rays interpreted by me (1pt min.). @ -None done CT interpreted by me (1pt min.). @ -None done U/S interpreted by me (1pt. min.). @ -None done What testing was considered but not performed or refused? (CT, X-rays, U/S, labs)? Why? @ -None What meds were considered but not given or refused? Why? @ -None Did you discuss the management of the patient with other professionals (pr ofessionals i.e. , PA, DIRECTOR CLIENT SERVICES, lab, RT, psych nurse, social service technician, pilot control operator helper, teacher, police liaison officer, keycase assembler)? Give summary @ -Case discussed with About who is comfortable with patient staying in the hospital. He states he likely does not need to consult. If patient does need repeat scope may need to be transferred at that time for GI to do it secondary to history of AVM cauterization. Case also discussed with Dr. Payan who will admit covering Dr. Solorio, who acuities for Dr. Banks. Was smoking cessation discussed for >3mins.? @ -No Was critical care preformed (if so, how long)? @ -No Were there social determinants of health that impacted care today? How? (Homelessness, low income, unemployed, alcoholism, drug addiction, transportation, low edu. Level, literacy, decrease access to med. care, longterm, rehab)? @ -No Was there de-escalation of care discussed even if they declined (Discuss DNR or withdrawal of care, Hospice)? DNR status @ -No What co-morbidities impacted this encounter? (DM, HTN, Smoking, COPD, CAD, Cancer, CVA, ARF, Chemo, Hep., AIDS, mental health diagnosis, sleep apnea, morbid obesity)? @ -None Was patient admitted / discharged? Hospital course, mention meds given and route, prescriptions, significant lab abnormalities, going to OR and other [facility] info. @ -Patient presents with anemia. Hemoglobin improved from yesterday. Patient will be held and repeat hemoglobin testing. Undiagnosed new problem with uncertain prognosis? @ -No Drug Therapy requiring intensive monitoring for toxicity (Heparin, Nitro, Insulin, Cardizem)? @ -No Were any procedures done? @ -No Diagnosis/symptom? @ -Anemia Acute, or Chronic, or Acute on Chronic? @ -Acute Uncomplicated (without systemic symptoms) or Complicated (systemic symptoms)? @ -Default Side effects of treatment? @ -No Exacerbation, Progression, or Severe Exacerbation? @ -No Poses a threat to life or bodily function? How? (Chest pain, USA, NM, pneumonia, PE, COPD, DKA, ARF, appy, cholecystitis, CVA, Diverticulitis, Homicidal, Suicidal, threat to staff... and all critical care pts) @ -Threat to hyperperfusion of all organs based off anemia - Lab Data Result diagrams: 10/29/23 10:34 10/29/23 10:34 Lab Results 10/29/23 10/29/23 10/29/23 Range/Units 10:34 10:34 10:34 WBC 6.1 (3.8-10.6) k/uL RBC 2.75 L (3.80-5.40) m/uL Hgb 7.0 L D (11.4-16.0) gm/dL Hct 23.4 L (34.0-46.0) % MCV 85.2 (80.0-100.0) fL MCH 25.3 (25.0-35.0) pg MCHC 29.8 L (31.0-37.0) g/dL RDW 17.6 H (11.5-15.5) % Plt Count 358 (150-450) k/uL MPV 7.8 Neutrophils % 75 % Lymphocytes % 14 % Monocytes % 4 % Eosinophils % 6 % Basophils % 1 % Neutrophils # 4.6 (1.3-7.7) k/uL Lymphocytes # 0.9 L (1.0-4.8) k/uL Monocytes # 0.2 (0-1.0) k/uL Eosinophils # 0.3 (0-0.7) k/uL Basophils # 0.0 (0-0.2) k/uL Hypochromasia Marked Anisocytosis Slight PT 10.6 (10.0-12.5) sec INR 1.0 (<1.2) APTT 26.0 (22.0-30.0) sec Sodium 144 (137-145) mmol/L Potassium 4.5 (3.5-5.1) mmol/L Chloride 110 H (98-107) mmol/L Carbon Dioxide 28 (22-30) mmol/L Anion Gap 6 mmol/L BUN 28 H (7-17) mg/dL Creatinine 0.97 (0.52-1.04) mg/dL Est GFR (CKD-EPI)AfAm 61 (>60 ml/min/1.73 sqM) Est GFR (CKD-EPI)NonAf 53 (>60 ml/min/1.73 sqM) Glucose 135 H (74-99) mg/dL Calcium 6.9 L (8.4-10.2) mg/dL Total Bilirubin 0.3 (0.2-1.3) mg/dL AST 21 (14-36) U/L ALT 9 (4-34) U/L Alkaline Phosphatase 51 (38-126) U/L Total Protein 6.5 (6.3-8.2) g/dL Albumin 3.5 (3.5-5.0) g/dL Stool Occult Blood (Negative) 10/29/23 Range/Units 12:06 WBC (3.8-10.6) k/uL RBC (3.80-5.40) m/uL Hgb (11.4-16.0) gm/dL Hct (34.0-46.0) % MCV (80.0-100.0) fL MCH (25.0-35.0) pg MCHC (31.0-37.0) g/dL RDW (11.5-15.5) % Plt Count (150-450) k/uL MPV Neutrophils % % Lymphocytes % % Monocytes % % Eosinophils % % Basophils % % Neutrophils # (1.3-7.7) k/uL Lymphocytes # (1.0-4.8) k/uL Monocytes # (0-1.0) k/uL Eosinophils # (0-0.7) k/uL Basophils # (0-0.2) k/uL Hypochromasia Anisocytosis PT (10.0-12.5) sec INR (<1.2) APTT (22.0-30.0) sec Sodium (137-145) mmol/L Potassium (3.5-5.1) mmol/L Chloride (98-107) mmol/L Carbon Dioxide (22-30) mmol/L Anion Gap mmol/L BUN (7-17) mg/dL Creatinine (0.52-1.04) mg/dL Est GFR (CKD-EPI)AfAm (>60 ml/min/1.73 sqM) Est GFR (CKD-EPI)NonAf (>60 ml/min/1.73 sqM) Glucose (74-99) mg/dL Calcium (8.4-10.2) mg/dL Total Bilirubin (0.2-1.3) mg/dL AST (14-36) U/L ALT (4-34) U/L Alkaline Phosphatase (38-126) U/L Total Protein (6.3-8.2) g/dL Albumin (3.5-5.0) g/dL Stool Occult Blood Positive H (Negative) Disposition Clinical Impression: Anemia Disposition: ADMITTED IP TO THIS [facility] Is patient prescribed a controlled substance at d/c from ED?: No Referrals: Mariza Bradley DO [Primary Care Provider] - 1-2 days Time of Disposition: 13:50
[2023-10-29] MEDS ORDERED: NALOXONE 0.4 MG/ML 1 ML VIAL IV PRN (13:54)
[2023-10-29] MEDS ORDERED: ACETAMINOPHEN TAB 325 MG TAB PO PRN (13:58)
[2023-10-29] MEDS: METOPROLOL TARTRATE 12.5 MG TAB PO SCH (20:05)
--- NOTE | 2023-10-29 23:50 | P.HPIM ---
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 On 10/15/2023 patient had right transfemoral percutaneous transcatheter aortic valve replacement due to symptomatic calcified aortic stenosis. Otherwise patient states that she has been having dark stools for the past 2 days. Patient was recently started on aspirin and metoprolol. Patient had laboratory test done on 10/28/2023 showed hemoglobin 6.6.Hemoglobin during recent admission was 8.6. Patient otherwise denies any chest pain or shortness of breath. Denies any headache or dizziness or lightheadedness. No nausea vomiting or diarrhea. No cough or sputum production. Denies any dysuria or hematuria. Denies any bright red or maroon-colored stool. Patient had EGD and colonoscopy on 09/22/2023 EGD showed gastritis, hiatal hernia, Vazquez's 8 AVMs, diverticulosis. Status post cauterization of AVM. Laboratory data showed WBC 6.1 hemoglobin 7.0 and platelets 358 RDW 17.6, sodium 144 potassium 4.5 chloride 110 bicarb is 28 BUN 28 and creatinine 0.97 and blood sugar 135 and calcium 6.9. Hemoccult positive. Review of Systems Constitutional: Patient denies any fever or chills . No generalized weakness or weight loss. Abdomen: Patient denied nausea vomiting and diarrhea and abdominal pain. Cardiovascular: Patient denies any chest pain or short of breath no palpitations. Respiratory: patient denied any cough is from production. No shortness of breath Neurologic: Patient denied any numbness or tingling headache. Musculoskeletal: Patient denies any complaints of joint swelling or deformity. Skin: Negative Psychiatric: Negative Endocrine: No heat or cold intolerance. No recent weight gain. Genitourinary: No dysuria or hematuria. 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 up to 3ppd Past Drug Use History: None Reported - Past Family History Mother Family Medical History: No Reported History Medications and Allergies Home Medications Medication Instructions Recorded Confirmed Type Cyanocobalamin [Vitamin B-12 1,000 mcg SQ QMONTHLY 09/18/23 10/29/23 History Injection] Levothyroxine Sodium [Synthroid] 112 mcg PO DAILY 09/18/23 10/29/23 History Meclizine [Antivert] 25 mg PO TID PRN 09/18/23 10/29/23 History Sertraline [Zoloft] 25 mg PO DAILY 09/18/23 10/29/23 History Simvastatin [Zocor] 5 mg PO DAILY 09/18/23 10/29/23 History amLODIPine [Norvasc] 5 mg PO DAILY 09/18/23 10/29/23 History Acetaminophen Tab [Tylenol] 650 mg PO Q6HR PRN tab 09/23/23 10/29/23 Rx Pantoprazole [Protonix] 40 mg PO DAILY #30 tab 09/23/23 10/29/23 Rx Aspirin 81 mg PO DAILY #30 tab 10/16/23 10/29/23 Rx Metoprolol Tartrate [Lopressor] 12.5 mg PO BID #60 tab 10/16/23 10/29/23 Rx Sennosides-Docusate Sodium 2 tab PO HS PRN 10/29/23 10/29/23 History [Senokot-S] Allergies Allergy/AdvReac Type Severity Reaction Status Date / Time No Known Allergies Allergy Verified 10/29/23 12:39 Physical Exam Vitals: Vital Signs Temp Pulse Pulse Resp BP BP Pulse Ox 10/29/23 20:00 98.4 F 66 156/65 96 10/29/23 15:41 97.6 F 75 17 187/63 94 L 10/29/23 15:07 87 18 149/66 96 10/29/23 12:03 63 18 129/58 94 L 10/29/23 10:31 98.5 F 68 16 125/47 97 Intake and Output 10/29/23 10/29/23 10/29/23 06:59 14:59 22:59 Other: # Voids 1 # Bowel Movements 1 Weight 61.235 kg 61.235 kg PHYSICAL EXAMINATION: Patient is lying in the bed comfortably, no acute distress, awake alert and oriented.. HEENT: Normocephalic. Neck is supple. Pupils reactive. Nostrils clear. Oral cavity is moist. Neck reveals no JVD, carotid bruits, or thyromegaly. CHEST EXAMINATION: Trachea is central. Symmetrical expansion. Lung doan clear to auscultation and percussion. CARDIAC: Normal S1, S2 with no gallops. No murmurs ABDOMEN: Soft. Bowel sounds normal. No organomegaly. No abdominal bruits. Extremities: reveal no edema. No clubbing or cyanosis Neurologically awake, alert, oriented x3 with well-coordinated movements. No focal deficits noted Skin: No rash or skin lesions. Psychiatric: Coperative. Nonsuicidal Musculoskeletal: No joint swelling or deformity. Normal range of motion. Results CBC & Chem 7: 10/29/23 10:34 10/29/23 10:34 Labs: Abnormal Lab Results - Last 24 Hours (Table) 10/29/23 10/29/23 10/29/23 Range/Units 10:34 10:34 12:06 RBC 2.75 L (3.80-5.40) m/uL Hgb 7.0 L D (11.4-16.0) gm/dL Hct 23.4 L (34.0-46.0) % MCHC 29.8 L (31.0-37.0) g/dL RDW 17.6 H (11.5-15.5) % Lymphocytes # 0.9 L (1.0-4.8) k/uL Chloride 110 H (98-107) mmol/L BUN 28 H (7-17) mg/dL Glucose 135 H (74-99) mg/dL Calcium 6.9 L (8.4-10.2) mg/dL Stool Occult Blood Positive H (Negative) Thrombosis Risk Factor Assmnt - DVT/VTE Prophylaxis DVT/VTE Prophylaxis: Mechanical Prophylaxis ordered Assessment and Plan Assessment: Acute GI bleed likely upper GI is black-colored stools x 2 days. Hemoglobins 6.6 yesterday and 7.0 in the ER today. History of GI bleed s/p EGD and colonoscopy on 09/22/2023 showed mild gastritis, hiatal hernia, AVMs in colon status post cauterization. Status post transcatheter aortic valve replacement on 10/15/2023 due to severe calcified aortic stenosis. 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 Osteoarthritis DVT prophylaxis with SCDs Plan: Patient will be continued on IV hydration with half-normal saline. Continue to monitor H&H., Iron profile, B12 and folate levels ordered. Continue with Protonix IV 40 mg daily Aspirin is on hold. Transfuse if hemoglobin less than 7. Continue with other home medication including levothyroxine and metoprolol and amlodipine. Titrate dose as needed. Consider general surgery evaluation if hemoglobin continues to drop. Follow-up closely. Time with Patient: Greater than 30
[2023-10-30] MEDS: SODIUM CHLORIDE 0.45% 1,000 ML IV SCH (01:20)
[2023-10-30] MEDS: LEVOTHYROXINE 112 MCG TAB PO SCH (05:41)
[2023-10-30] MEDS: PANTOPRAZOLE 40 MG/10 ML VIAL IV SCH (08:22)
[2023-10-30] MEDS: ATORVASTATIN 10 MG TAB PO SCH (08:22)
[2023-10-30] MEDS: amLODIPine 5 MG TAB PO SCH (08:22)
[2023-10-30] MEDS: SERTRALINE 25 MG TAB PO SCH (08:22)
[2023-10-30 13:40] LABS: Anisocytosis Slight; Basophils % (A) 1 %; Eosinophils # (A) 0.3 k/uL (0-0.7); Eosinophils % (A) 6 %; HCT 26.3 % (34.0-46.0); HGB 7.7 gm/dL (11.4-16.0); Hypochromasia Marked; Lymphocytes # (A) 1.1 k/uL (1.0-4.8); Lymphocytes % (A) 19 %; MCHC 29.2 g/dL (31.0-37.0); MCV 85.7 fL (80.0-100.0); Mean Platelet Volume 7.4; Monocytes # (A) 0.2 k/uL (0-1.0); Monocytes % (A) 4 %; Neutrophils % (A) 70 %; Platelet Count 415 k/uL (150-450); RBC 3.06 m/uL (3.80-5.40); RDW 17.3 % (11.5-15.5); WBC 5.7 k/uL (3.8-10.6)
[2023-10-30 13:52] LABS: African American GFR (CKD) 65 (>60 ml/min/1.73 sqM); Anion Gap 9 mmol/L; Blood Urea Nitrogen 19 mg/dL (7-17); Calcium 7.2 mg/dL (8.4-10.2); Carbon Dioxide 25 mmol/L (22-30); Chloride 106 mmol/L (98-107); Glucose 156 mg/dL (74-99); Non-African American GFR(CKD) 56 (>60 ml/min/1.73 sqM); Potassium 4.3 mmol/L (3.5-5.1); Sodium 140 mmol/L (137-145)
[2023-10-30] MEDS: SODIUM FERRIC GLUCONAT-SUCROSE 125 MG in SODIUM CHLORIDE 0.9% 100 ML IVPB ONE (14:53)
[2023-10-30 18:52] LABS: % Iron Saturation 4.83 (12.00-45.00); Iron 21 UG/DL (50-170); Total Iron Binding Capacity 435 UG/DL (228-460)
[2023-10-30 20:00] VITALS: BP 147/65; PULSE 64; RESP 18; TEMP 97.4
--- NOTE | 2023-10-30 20:50 | P.DS ---
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 On 10/15/2023 patient had right transfemoral percutaneous transcatheter aortic valve replacement due to symptomatic calcified aortic stenosis. Otherwise patient states that she has been having dark stools for the past 2 da ys. Patient was recently started on aspirin and metoprolol. Patient had laboratory test done on 10/28/2023 showed hemoglobin 6.6.Hemoglobin during recent admission was 8.6. Patient otherwise denies any chest pain or shortness of breath. Denies any headache or dizziness or lightheadedness. No nausea vomiting or diarrhea. No cough or sputum production. Denies any dysuria or hematuria. Denies any bright red or maroon-colored stool. Patient had EGD and colonoscopy on 09/22/2023 EGD showed gastritis, hiatal hernia, Vazquez's 8 AVMs, diverticulosis. Status post cauterization of AVM. Laboratory data showed WBC 6.1 hemoglobin 7.0 and platelets 358 RDW 17.6, sodium 144 potassium 4.5 chloride 110 bicarb is 28 BUN 28 and creatinine 0.97 and blood sugar 135 and calcium 6.9. Hemoccult positive. October 30, 2023: Spoke to the patient daughter at the bedside. Patient has been dizzy lightheaded. Tired. Likely bleeding from AVM. No GI services available this week. Hemoglobin this morning 7. Borderline. For symptom control in the setting of acute slow bleed will transfuse 1 unit of blood. Discussed with the nurse. Patient will follow-up with Dr. Ramirez outpatient next week and PCP. Repeat CBC next week. 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 up to 3ppd Past Drug Use History: None Reported - Past Family History Mother PHYSICAL EXAMINATION: Vitals: 98.1, 56, 12, 105/51, 95% room air Patient is lying in the bed comfortably, no acute distress, awake alert and oriented.. HEENT: Normocephalic. Neck is supple. Pupils reactive. Nostrils clear. Oral cavity is moist. Neck reveals no JVD, carotid bruits, or thyromegaly. CHEST EXAMINATION: Trachea is central. Symmetrical expansion. Lung doan clear to auscultation and percussion. CARDIAC: Normal S1, S2 with no gallops. No murmurs ABDOMEN: Soft. Bowel sounds normal. No organomegaly. No abdominal bruits. Extremities: reveal no edema. No clubbing or cyanosis Neurologically awake, alert, oriented x3 with well-coordinated movements. No focal deficits noted Skin: No rash or skin lesions. Psychiatric: Coperative. Answering questions appropriately Musculoskeletal: No joint swelling or deformity. Normal range of motion. INVESTIGATIONS, reviewed in the clinical context: October 30, 2023: White count 5.7 hemoglobin 7.7 platelets 415 October 28: Hemoglobin 7 Stool occult positive Assessment: -Acute GI bleed black-colored stools x 2 days. Hemoglobins 6.6 yesterday followed by hemoglobin of 7. Possible AVM bleed. [History of GI bleed s/p EGD and colonoscopy on 09/22/2023 showed mild gastritis, hiatal hernia, AVMs in colon status post cauterization.] Transfuse 1 unit of blood for symptomatic control -Status post transcatheter aortic valve replacement on 10/15/2023 due to severe calcified aortic stenosis. 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 Primary osteoarthritis Disposition: Home Plan - Discharge Summary New Discharge Prescriptions: Continue Sertraline [Zoloft] 25 mg PO DAILY Meclizine [Antivert] 25 mg PO TID PRN PRN Reason: Vertigo Levothyroxine Sodium [Synthroid] 112 mcg PO DAILY Cyanocobalamin [Vitamin B-12 Injection] 1,000 mcg SQ QMONTHLY Acetaminophen Tab [Tylenol] 650 mg PO Q6HR PRN tab PRN Reason: Mild Pain Or Fever > 100.5 Sennosides-Docusate Sodium [Senokot-S] 2 tab PO HS PRN PRN Reason: Constipation Simvastatin [Zocor] 5 mg PO DAILY Pantoprazole [Protonix] 40 mg PO DAILY #30 tab Metoprolol Tartrate [Lopressor] 12.5 mg PO BID #60 tab Discontinued amLODIPine [Norvasc] 5 mg PO DAILY Aspirin 81 mg PO DAILY #30 tab Discharge Medication List Cyanocobalamin [Vitamin B-12 Injection] 1,000 mcg SQ QMONTHLY 09/18/23 [History] Levothyroxine Sodium [Synthroid] 112 mcg PO DAILY 09/18/23 [History] Meclizine [Antivert] 25 mg PO TID PRN 09/18/23 [History] Sertraline [Zoloft] 25 mg PO DAILY 09/18/23 [History] Simvastatin [Zocor] 5 mg PO DAILY 09/18/23 [History] Acetaminophen Tab [Tylenol] 650 mg PO Q6HR PRN tab 09/23/23 [Rx] Pantoprazole [Protonix] 40 mg PO DAILY #30 tab 09/23/23 [Rx] Metoprolol Tartrate [Lopressor] 12.5 mg PO BID #60 tab 10/16/23 [Rx] Sennosides-Docusate Sodium [Senokot-S] 2 tab PO HS PRN 10/29/23 [History] Follow up Appointment(s)/Referral(s): Nishant Ramirez MD [Medical Doctor] - 1 Week (please call for appointment, office currently closed.) Mariza Bradley DO [Primary Care Provider] - 1-2 days (please call for appointment, office currently closed.) Patient Instructions/Handouts: Anemia (DC), Hemoccult Test (GEN) Discharge Disposition: HOME SELF-CARE
[2023-11-08] MEDS ORDERED: CYANOCOBALAMIN 1000 MCG/ML SQ SCH (09:00)
== END 2023-10-30 20:40 | disposition home or self-care (01) ==
LOC: EC 10:25 → 1SOBS 13:57 → 5NMEDONC 10-30 17:48
PROVIDERS: ADMIT Hospitalist; ATTEND Hospitalist
DX: K92.2 Gastrointestinal hemorrhage, unspecified (principal); D64.9 Anemia, unspecified; J44.9 Chronic obstructive pulmonary disease, unspecified; K21.9 Gastro-esophageal reflux disease without esophagitis; E78.5 Hyperlipidemia, unspecified; I10 Essential (primary) hypertension; E89.0 Postprocedural hypothyroidism; I67.1 Cerebral aneurysm, nonruptured; M19.91 Primary osteoarthritis, unspecified site; Z87.891 Personal history of nicotine dependence; Z95.4 Presence of other heart-valve replacement; Z79.890 Hormone replacement therapy; Z79.899 Other long term (current) drug therapy; Z79.82 Long term (current) use of aspirin
CPT/HCPCS: 36430; 96361; 96365; 96375; 99285; 36415; 86900; 86901; 82747; 80053; 80048; 82607; 83540; 83550; 85025 ×2; 85610; 85730; 86850; 86920; 82272; G0378 ×2; P9016; J2916; C9113

== ENCOUNTER → 2023-11-12 | Outpatient (CLI) | payer MEDICARE ==
[2023-11-12 18:35] LABS: Basophils # (A) 0.03 X 10*3/uL (0.00-0.10); Basophils % (A) 0.5 %; Eosinophils # (A) 0.45 X 10*3/uL (0.04-0.35); Eosinophils % (A) 7.1 %; HCT 28.7 % (37.2-46.3); HGB 8.1 g/dL (12.0-15.0); Lymphocytes # (A) 1.49 X 10*3/uL (0.90-5.00); Lymphocytes % (A) 23.7 %; MCH 24.8 pg (27.0-32.0); MCHC 28.2 g/dL (32.0-37.0); Mean Platelet Volume 10.3 FL (9.5-12.2); Monocytes # (A) 0.51 X 10*3/uL (0.20-1.00); Monocytes % (A) 8.1 %; NRBC Per 100 WBC 0 X 10*3/uL (0.00-0.01); Neutrophils % (A) 60.3 %; Platelet Count 226 X 10*3/uL (140-440); RBC 3.26 X 10*6/uL (4.10-5.20); RDW 17.5 % (11.5-14.5)
== END | disposition home or self-care (01) ==
LOC: LABWHC1 13:46
PROVIDERS: ATTEND Family Medicine
DX: D64.9 Anemia, unspecified (principal)
CPT/HCPCS: 36415; 85025

== ENCOUNTER → 2023-12-19 | Outpatient (CLI) | payer MEDICARE ==
[2023-12-19 15:34] LABS: BUN/Creat Ratio 24.75 Ratio (12.00-20.00); Blood Urea Nitrogen 29.7 mg/dL (9.0-27.0); Calcium 8.2 mg/dL (8.7-10.3); Carbon Dioxide 24.2 mmol/L (21.6-31.8); Chloride 106 mmol/L (96-109); Glucose 109 mg/dL (70-110); Potassium 4.5 mmol/L (3.5-5.5); Sodium 143 mmol/L (135-145)
[2023-12-19 15:52] LABS: Basophils # (A) 0.03 X 10*3/uL (0.00-0.10); Basophils % (A) 0.5 %; Eosinophils # (A) 0.29 X 10*3/uL (0.04-0.35); Eosinophils % (A) 5.3 %; HCT 30.7 % (37.2-46.3); HGB 8.8 g/dL (12.0-15.0); Lymphocytes # (A) 1.31 X 10*3/uL (0.90-5.00); MCH 24.6 pg (27.0-32.0); MCHC 28.7 g/dL (32.0-37.0); Mean Platelet Volume 10.5 FL (9.5-12.2); Monocytes # (A) 0.35 X 10*3/uL (0.20-1.00); Monocytes % (A) 6.4 %; NRBC Per 100 WBC 0 X 10*3/uL (0.00-0.01); Neutrophils # (A) 3.47 X 10*3/uL (1.80-7.70); Neutrophils % (A) 63.6 %; Platelet Count 270 X 10*3/uL (140-440); RBC 3.57 X 10*6/uL (4.10-5.20); RDW 16.6 % (11.5-14.5); WBC 5.46 X 10*3/uL (4.50-10.00)
== END | disposition home or self-care (01) ==
LOC: LABWHC1 10:10
PROVIDERS: ATTEND Thoracic Surgery (Cardiothoracic Vascular Surgery)
DX: I35.1 Nonrheumatic aortic (valve) insufficiency (principal)
CPT/HCPCS: 36415; 80048; 85025

== ENCOUNTER → 2024-01-15 | Outpatient (CLI) | payer MEDICARE | END | disposition home or self-care (01) | LOC: LABWHC1 14:11 | PROVIDERS: ATTEND Internal Medicine Gastroenterology | DX: D50.9 Iron deficiency anemia, unspecified (principal) | CPT/HCPCS: 36415; 82728; 83540; 83550; 85025 ==

== ENCOUNTER → 2024-04-06 | Outpatient (CLI) | payer MEDICARE ==
[2024-04-06 15:43] LABS: T4, Free (Free Thyroxine) 0.56 ng/dL (0.80-1.80)
== END | disposition home or self-care (01) ==
LOC: LABWHC1 10:31
PROVIDERS: ATTEND Nurse Practitioner Family
DX: R41.3 Other amnesia (principal)
CPT/HCPCS: 36415; 84439; 84443; 86592

== ENCOUNTER 2024-05-06 21:05 | Emergency (ER) | payer MEDICARE ==
--- NOTE | 2024-05-06 21:43 | ED ---
Fall HPI - General Chief Complaint: Fall Stated Complaint: Fall Time Seen by Provider: 05/06/24 21:17 Source: patient Mode of arrival: wheelchair - History of Present Illness Initial Comments: 89-year-old female presenting for evaluation post fall. Patient was in her garage climbing on things to reach something up high and when she came back down she stepped on some plastic bags slipped and fell backwards. No loss of consciousness or blood thinners. She has pain to the back of her head and some neck soreness. She also has lower back and bilateral hip pain. No abdominal pa in, chest pain, difficulty breathing. No dizziness, tingling, weakness. No nausea or vomiting. - Related Data Home Medications Medication Instructions Recorded Confirmed Cyanocobalamin [Vitamin B-12 1,000 mcg SQ QMONTHLY 09/18/23 10/29/23 Injection] Levothyroxine Sodium [Synthroid] 112 mcg PO DAILY 09/18/23 10/29/23 Meclizine [Antivert] 25 mg PO TID PRN 09/18/23 10/29/23 Sertraline [Zoloft] 25 mg PO DAILY 09/18/23 10/29/23 Simvastatin [Zocor] 5 mg PO DAILY 09/18/23 10/29/23 Sennosides-Docusate Sodium 2 tab PO HS PRN 10/29/23 10/29/23 [Senokot-S] Previous Rx's Medication Instructions Recorded Acetaminophen Tab [Tylenol] 650 mg PO Q6HR PRN tab 09/23/23 Pantoprazole [Protonix] 40 mg PO DAILY #30 tab 09/23/23 Metoprolol Tartrate [Lopressor] 12.5 mg PO BID #60 tab 10/16/23 Allergies Allergy/AdvReac Type Severity Reaction Status Date / Time No Known Allergies Allergy Verified 05/06/24 21:14 Review of Systems ROS Statement: Those systems with pertinent positive or pertinent negative responses have been documented in the HPI. ROS Other: All systems not noted in ROS Statement are negative. 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., not sure who is following up on that, new to area, d/c from [facility] 4/16 for GI bleed, anemia-had transfusion & EGD/colonoscopy-found gastritis & had cautery of AVM's in colon, SOB w/exertion, heart valve problem History of Any Multi-Drug Resistant Organisms: None Reported Past Surgical History: Heart Catheterization, Hysterectomy, Tonsillectomy Additional Past Surgical History / Comment(s): partial thyroidectomy, EGD, colonoscopy Past Anesthesia/Blood Transfusion Reactions: No Reported Reaction Past Psychological History: No Psychological Hx Reported Smoking Status: Former smoker Past Alcohol Use History: None Reported Past Drug Use History: None Reported - Past Family History Mother Family Medical History: No Reported History General Exam Limitations: no limitations General appearance: alert, in no apparent distress Expanded Head exam: Present: hematoma (Hematoma to the back of the hide). Absent: raccoon eyes, sweeney's sign Eye exam: Present: normal appearance, PERRL, EOMI Pupils: Present: normal accommodation Neck exam: Present: normal inspection. Absent: tenderness Respiratory exam: Present: normal lung sounds bilaterally. Absent: respiratory distress, wheezes, rales, rhonchi, stridor Cardiovascular Exam: Present: regular rate, normal rhythm, normal heart sounds. Absent: systolic murmur, diastolic murmur, rubs, gallop, clicks GI/Abdominal exam: Present: soft. Absent: distended, tenderness, guarding, rebound, rigid Extremities exam: Present: normal inspection, full ROM Neurological exam: Present: alert, oriented X3 Expanded Patient oriented to: Present: person, place, time Speech: Present: fluid speech Cranial nerves: EOM's Intact: Normal, Tongue Deviation: Normal Sensory exam: Upper Extremity Light Touch: Normal, Lower Extremity Light Touch: Normal Motor strength exam: RUE: 5, LUE: 5, RLE: 5, LLE: 5 Eye Response: (4) open spontaneously Motor Response: (6) obeys commands Verbal Response: (5) oriented [place] Total: 15 Psychiatric exam: Present: normal affect, normal mood Skin exam: Present: warm, dry, normal color Course Vital Signs 05/06/24 05/06/24 05/07/24 21:13 23:08 01:43 Temperature 98.3 F 97.6 F 98.2 F Pulse Rate 61 59 L 62 Respiratory 18 16 16 Rate Blood Pressure 151/62 144/70 166/70 O2 Sat by Pulse 95 95 98 Oximetry Medical Decision Making - Medical Decision Making Was pt. sent in by a medical professional or institution (, PA, ADMINISTRATIVE FELLOW, urgent care, hospital, or snf...) When possible be specific @ -No Did you speak to anyone other than the patient for history (EMS, parent, family, police, friend...)? What history was obtained from this source @ -Patient's daughter Did you review nursing and triage notes (agree or disagree)? Why? @ -I reviewed and agree with nursing and triage notes Were old charts reviewed (outside hosp., previous admission, EMS record, old EKG, old radiological studies, urgent care reports/EKG's, snf records)? Report findings @ -No old charts were reviewed Differential Diagnosis (chest pain, altered mental status, abdominal pain women, abdominal pain men, vaginal bleeding, weakness, fever, dyspnea, syncope, headache, dizziness, GI bleed, back pain, seizure, CVA, palpatations, mental health, musculoskeletal)? @ -Differential Musculoskeletal Muscular strain, contusion, ligament sprain, fracture, arthritis, septic arthritis, bursitis, cellulitis, muscle spasm, nerve compression, DVT, arterial occlusion, herpes zoster, electrolyte abnormality, tumor.... This is not meant to be in all inclusive list EKG interpreted by me (3pts min.). @ -As above X-rays interpreted by me (1pt min.). @ -Hip x-ray shows no acute process Lumbar spine x-ray shows age-indeterminate mild compression fracture of the L1 vertebral body. Recommend correlation with any prior outside imaging if available CT interpreted by me (1pt min.). @ -CT shows no acute intracranial process. No convincing acute evidence of acute fracture or subluxation involving the cervical spine. Multilevel cervical spine degenerative changes. Lumbar spine CT shows compression fracture involving the L1 vertebral body with extension to both the anterior and posterior cortex and involving the superior endplate. There is approximately 20% loss of height. There is approximately 3 mm retropulsion of the posterior cortex. There is no extension to the pedicles or posterior elements U/S interpreted by me (1pt. min.). @ -None done What testing was considered but not performed or refused? (CT, X-rays, U/S, labs)? Why? @ -None What meds were considered but not given or refused? Why? @ -None Did you discuss the management of the patient with other professionals (professionals i.e. , PA, ADMINISTRATIVE FELLOW, lab, RT, psych nurse, social science instructor, grey goods tester, teacher, highway patrol officer, disease case manager)? Give summary @ -No Was smoking cessation discussed for >3mins.? @ -No Was critical care preformed (if so, how long)? @ -No Were there social determinants of health that impacted care today? How? (Homelessness, low income, unemployed, alcoholism, drug addiction, transportation, low edu. Level, literacy, decrease access to med. care, nursing home, rehab)? @ -No Was there de-escalation of care discussed even if they declined (Discuss DNR or withdrawal of care, Hospice)? DNR status @ -No What co-morbidities impacted this encounter? (DM, HTN, Smoking, COPD, CAD, Cancer, CVA, ARF, Chemo, Hep., AIDS, mental health diagnosis, sleep apnea, morbid obesity)? @ -None Was patient admitted / discharged? Hospital course, mention meds given and route, prescriptions, significant lab abnormalities, going to OR and other pertinent info. @ -89-year-old female presenting for evaluation post fall. Patient was in the garage trying to reach something high when she fell from standing. No loss of consciousness or blood thinners. CT shows no acute intracranial process or cervical spine fracture. There is an age-indeterminate compression fracture on the lumbar spine x-ray. No acute process seen on hip x-ray. CT is obtained of the lumbar spine which shows 3 mm of retropulsion. No history of compression fracture. Clinically the patient is doing quite well, she is able to walk at her baseline with the mild assistance of her walker which she uses regularly. Daughter states that she is having no difficulty walking. Given that the patient is doing well ambulating, we will refer them for orthopedic evaluation. Patient missed her evening dose of Antivert and Lopressor while here, she is getting a bit nauseous as well. Patient is given her evening medications and Zofran. She then feels quite well and feels ready for discharge. Follow-up with PCP. Report back to ER with any new or worsening symptoms. Discussed return parameters and answered all questions. Patient conveyed verbal understanding and agreed to the plan. I discussed this case in detail with my attending Dr. Brown Undiagnosed new problem with uncertain prognosis? @ -No Drug Therapy requiring intensive monitoring for toxicity (Heparin, Nitro, Insulin, Cardizem)? @ -No Were any procedures done? @ -No Diagnosis/symptom? @ -Head injury, compression fracture of the lumbar spine Acute, or Chronic, or Acute on Chronic? @ -Acute Uncomplicated (without systemic symptoms) or Complicated (systemic symptoms)? @ -Uncomplicated Side effects of treatment? @ -No Exacerbation, Progression, or Severe Exacerbation? @ -No Poses a threat to life or bodily function? How? (Chest pain, [place], DC, pneumonia, PE, COPD, DKA, ARF, appy, cholecystitis, CVA, Diverticulitis, Homicidal, Suicidal, threat to staff... and all critical care pts) @ - Disposition Clinical Impression: Fall, Compression fracture, Head injury Disposition: HOME SELF-CARE Condition: Good Instructions (If sedation given, give patient instructions): Vertebral Compression Fracture (ED), Head Injury (ED) Additional Instructions: Follow-up with your PCP. Follow-up with orthopedic technology integration specialist. Report back to ER with any new or worsening symptoms. Is patient prescribed a controlled substance at d/c from ED?: No Referrals: Mariza Bradley DO [Primary Care Provider] - 1-2 days Helder Montiel DO [Doctor of Osteopathic Medicine] - 1-2 days Time of Disposition: 00:32
--- NOTE | 2024-05-06 22:10 | CT ---
EXAMINATION TYPE: CT brain cspine wo con DATE OF EXAM: 05/06/2024 9:55 PM COMPARISON: None available. CLINICAL INDICATION: Female, 89 years old with history of fall; Patient is coming to facility after a fall in the garage. Patient fell from standing, no LOC, no blood thinner use. TECHNIQUE: Brain: Multiple axial CT images of the brain were obtained without IV contrast. Cspine: Axial CT images from the skull base to the inferior aspect of T2 we obtained without intraven ous contrast. Coronal and sagittal reformatted images were also reviewed. . CT DLP: 1349 mGycm, Automated exposure control for dose reduction was used. FINDINGS: Brain: No appreciable hemorrhage, midline shift or significant mass effect. Ventricles and sulci are promine nt compatible with generalized cerebral volume loss. Basal cisterns are patent. No sizable extra-axia l fluid collection. Patchy periventricular and subcortical white matter hypoattenuation likely reflec ting chronic microvascular ischemia. No depressed calvarial fracture or large scalp hematoma. Paranas al sinuses and mastoid air cells appear patent. Previous bilateral cataract lens extraction noted. Cervical spine: Straightening of the normal cervical spine lordotic curvature. Extensive multilevel anterior osteophy te formation and intervertebral disc space loss. Small well-corticated ossific density adjacent to th e right anterior aspect of the C2 vertebral body (sagittal series image 61) felt to most likely refle ct either sequela of prior trauma or degenerative changes. Additional ossific density adjacent to the left C1/C2 articulation (sagittal image 48). Small avulsion fractures would be considered less likel y. Correlation with any prior outside imaging if available. No convincing evidence of acute fracture or traumatic subluxation. Minimal anterolisthesis of C2 on C3. Multilevel facet arthropathy/uncoverte bral hypertrophy in combination with posterior disc osteophyte complexes cause varying degrees of spi nal canal and neural foraminal narrowing. No significant prevertebral soft tissue swelling. Partially visualized lung apices without acute abnormality. No pathologic cervical chain lymphadenopathy. IMPRESSION: 1. No acute intracranial process. 2. No convincing acute evidence of acute fracture or subluxation involving the cervical spine. 3. Multilevel cervical spine degenerative changes as above. [facility], , 05/06/2024 10:07 PM
--- NOTE | 2024-05-06 22:12 | XR ---
EXAMINATION TYPE: XR lumbar spine 2 or 3V DATE OF EXAM: 05/06/2024 10:00 PM COMPARISON: None available. CLINICAL INDICATION: Female, 89 years old with history of fall; [facility] TECHNIQUE: XR lumbar spine 2 or 3V - Frontal, lateral and coned in L5-S1 lateral views of the spine. FINDINGS: 5 lumbar type vertebral bodies are present at the purposes of this examination. Multilevel intervertebral disc space loss. Grade 1 retrolisthesis of L1 on L2 and L2 on L3 as well as L3 and L4. Mild multilevel anterior C5 formation. Multilevel facet arthropathy, most apparent at L4-5 and L5-S1 . Age-indeterminate mild compression deformity of the L1 vertebral body. IMPRESSION: Age-indeterminate mild compression fracture of the L1 vertebral body. Recommend correlation with any prior outside imaging if available. [facility], , 05/06/2024 10:09 PM
--- NOTE | 2024-05-06 22:12 | XR ---
EXAMINATION TYPE: XR Hip Bilateral Complete DATE OF EXAM: 05/06/2024 10:00 PM COMPARISON: None. CLINICAL INDICATION: Female, 89 years old with history of fall; [facility] TECHNIQUE: XR Hip Bilateral Complete; Frontal and lateral views FINDINGS: No evidence for acute process, joint dislocation or significant soft tissue swelling. IMPRESSION: No acute process. [facility], , 05/06/2024 10:10 PM
[2024-05-06 23:09] VITALS: RESP 16
--- NOTE | 2024-05-06 23:49 | CT ---
EXAM: CT Lumbar Spine Without Intravenous Contrast CLINICAL HISTORY: new compression fracture TECHNIQUE: Axial computed tomography images of the lumbar spine without intravenous contrast. CTDI is 24.3 mGy and DLP is 717.2 mGy-cm. This CT exam was performed using one or more of the following dose reduction techniques: automated exposure control, adjustment of the mA and/or kV according to patient size, and/or use of iterative reconstruction technique. COMPARISON: No relevant prior studies available. FINDINGS: Vertebrae: Compression fracture involving the L1 vertebral body with extension to both the anterior and posterior cortex and involving the superior endplate. There is approximately 20% loss of height. There is approximately 3 mm retropulsion of the posterior cortex. There is no extension to the pedicles or posterior elements. The remaining lumbar vertebral bodies are intact without acute traumatic injury. There is a 2. 5 mm anterolisthesis involving L4 on L5. Facet hypertrophic changes noted at several levels bilaterally. Discs/spinal canal/neural foramina: See above. Diffuse disc space narrowing with marginal hypertrophic osteophyte changes and vacuum phenomenon, most prominent from L2-3 inferiorly. Soft tissues: No acute paraspinal soft tissue abnormality identified. No significant acute traumatic paraspinal soft tissue abnormality. Vasculature: Undulating fusiform ectasia of the abdominal aorta which is moderately calcified. No definite acute perivascular abnormality. Gallbladder and bile ducts: Incidental cholelithiasis noted throughout the gallbladder. IMPRESSION: Compression fracture involving the L1 vertebral body with extension to both the anterior and posterior cortex and involving the superior endplate. There is approximately 20% loss of height. There is approximately 3 mm retropulsion of the posterior cortex. There is no extension to the pedicles or posterior elements.
[2024-05-07] MEDS: METOPROLOL TARTRATE 12.5 MG TAB PO STA (00:55)
[2024-05-07] MEDS: MECLIZINE 12.5 MG TAB PO STA (00:55)
[2024-05-07] MEDS: ONDANSETRON ODT 4 MG TAB PO STA (00:56)
[2024-05-07 01:43] VITALS: BP 166/70; PULSE 62; TEMP 98.2
== END 2024-05-07 01:43 | disposition home or self-care (01) ==
LOC: EC 21:05
DX: S09.90XA Unspecified injury of head, initial encounter (principal); M48.56XA Collapsed vertebra, not elsewhere classified, lumbar region, initial encounter for fracture; W01.0XXA Fall on same level from slipping, tripping and stumbling without subsequent striking against object, initial encounter; Y99.0 Civilian activity done for income or pay; Z87.891 Personal history of nicotine dependence
CPT/HCPCS: 70450; 72100; 72125; 72131; 73521; 99284